=== PATIENT | male | born 1985 | race Caucasian/White ===

== ENCOUNTER 2021-03-17 01:36 | Emergency (ER) | payer BC, SELFPAY ==
[2021-03-17 01:46] VITALS: BP 181/101; PULSE 100; RESP 18; TEMP 36.2; O2SAT 100; BMI 35.2
[2021-03-17 02:02] LABS: IDNOW Serial# 9DD0AD1C
[2021-03-17 02:03] LABS: COVID-19 Test Positive (Negative)
--- NOTE | 2021-03-17 03:19 | ED_ITS ---
HPI - General Adult General Chief complaint: General Medical Stated complaint: Congested/SOB Time Seen by Provider: 03/17/21 02:58 Source: patient Mode of arrival: ambulatory Limitations: no limitations History of Present Illness HPI narrative: 36-year-old male who presents emergency department for evaluation of viral-like illness. The patient states that he got sick on 03/14/2021. His symptoms include fever, chills, sore throat, shortness of breath, nonproductive cough. He states the cough is worse when he is lying down. He states that he has a persistent cough and he is having difficulty sleeping. He also has chest pain which is worse with coughing and breathing. He feels short of breath but denies dyspnea on exertion. He has had fever as high as 101? F. The patient received the 2 shot Moderna vaccine with the 2nd shot given June 2020. Patient has been taking Tessalon Perles with no relief his cough. Related Data Allergies Allergy/AdvReac Type Severity Reaction Status Date / Time lisinopril AdvReac Mild Cough Verified 03/17/21 01:45 Review of Systems Review of Systems: Yes all other systems are reviewed and are negative [facility] Past Medical History [facility] Narrative: Past medical history: Hypertension. Social history: He denies tobacco use. He occasionally drinks alcohol. He denies drug use. Medical History (Updated 03/17/21 @ 03:26 by Tomas Austin MD) Hypertension Social History Social History Advance Directives: No Physical Exam Vital Signs: Vital Signs: Last Vital Signs Temp 97.1 F 03/17/21 01:46 Pulse 100 03/17/21 01:46 Resp 18 03/17/21 01:46 BP 181/101 H 03/17/21 01:46 Pulse Ox 100 03/17/21 01:46 BMI result Body Mass Index 35.2 Const: General: cooperative and no acute distress Or ientation/consciousness: oriented to person and oriented to place Limitations: no limitations HENMT: Head: Yes normal to inspection, Yes normocephalic and Yes atraumatic Ears: external ears normal General nose exam: Normal external nose present Face and sinus: Yes normal facial exam Mouth: Normal oral and palatal mucosa present Throat: Yes posterior oropharynx normal Eyes: General: appearance normal, both eyes and all related structures Pupils: Equal, round and reactive pupils present Neck: Neck: Yes normal visual inspection, Yes no lymphadenopathy, Yes trachea midline and Yes supple Chest: Chest palpation & inspection: normal inspection of the chest and normal palpation of entire chest wall Resp: Effort & Inspection: normal respiratory effort and able to speak in complete sentences Auscultation: clear to auscultation bilaterally Cardio: Rate: regular rate Rhythm: regular rhythm Heart sounds: S1 normal heart sound present, S2 normal heart sound present and no murmurs GI: Inspection: Yes normal to inspection Palpation (GI): Soft to palpation, nontender and no guarding Auscultation: normal bowel sounds : General: Yes no CVA tenderness Back/Spine/Pelvis: Back: no CVA tenderness Skin: General skin exam: no rashes or lesions noted Neuro: General: oriented to person and oriented to place Cranial nerves: Yes CN's II-XII intact bilaterally and Yes Equal, round and reactive pupils present Cognition (Neuro): normal cognition Motor exam (neuro): 5/5 motor strength present throughout Extrem: General: Yes normal to inspection Psych: Appearance: grossly normal Speech and movement: Normal speech and movement present Affect: normal affect Attitude: cooperative Thought process: Normal thought process present Thought content: Normal thought content present Course Course Course Narrative: 36-year-old male who presents emergency department for evaluation of viral-like illness that started 2 days prior to evaluation with symptoms including fever, chills, sore throat, shortness of breath, cough, myalgias. Patient was vaccinated with the 2 shot Moderna COVID-19 vaccine with his 2nd shot being given June 2020. Vital signs revealed an elevated blood pressure of 181/101, the patient does have essential hypertension. His O2 saturation was 1 her% on room air. Physical exam was unremarkable. COVID-19 test was positive. The patient has to significant risk factors for serious COVID-19 illness, these include hypertension and obesity. The patient will be referred to the [facility] COVID-19 monoclonal infusion clinic. Tylenol and ibuprofen for his pain. He was given printed and verbal discharge instructions Medical Decision Making Lab Data Labs: Lab Results 03/17/21 Range/Units 01:51 COVID-19 (ASHLEE) Positive A (Negative) COVID-19 Clin Com See Note Discharge Plan Discharge Clinical Impression: COVID-19 virus infection Patient Disposition: Home, Self-Care Instructions: COVID-19 (Coronavirus Disease 2019) (ED) Additional Instructions: Your COVID-19 test was positive. Your O2 saturation was 100% on room air which is very reassuring. We do not hospitalize people with COVID-19 infections unless the developed pneumonia and there O2 saturation drops below 90%. Take ibuprofen 200 mg pills, 3 pills every 6 hours as needed for pain. Take Tylenol (acetaminophen) 500 mg pills, 2 pills every 4 to 6 hours as needed for pain. Hopefully the COVID-19 vaccinations that you received will help you fight off the virus faster and help you recover sooner. You have 2 risk factors for serious illness with COVID-19, these include high blood pressure and being overweight. Therefore I am referring you to the [facility] COVID-19 monoclonal infusion clinic. I emailed the referral form to them. Please call the number on the bottom of the form today to make sure they got this information in to facilitate getting the treatment within the next for 2-4 days. Follow-up with your doctor in 2 days. Please return to the emergency department if your symptoms get worse or if you develop any symptoms that are concerning to you.
== END 2021-03-17 03:34 | disposition home or self-care (01) ==
PROVIDERS: Emergency Provider Emergency Medicine Emergency Medical Services
DX: U07.1 COVID-19 (principal)
CPT/HCPCS: 36415; 87635; 99283

== ENCOUNTER 2024-12-08 00:20 | Emergency (ER) | payer BC, SELFPAY ==
--- OUTSIDE RECORDS SUMMARY | 2023-12-20 14:24 | XMS_ITS | Encounter Summary ---
Author Organization [facility] Address [address] [place] [address] Care Team Providers Care Wrapper Off Name Role Phone Unavailable Primary Care Provider Unavailabl e Encounter Details Date Type Department Care Team (Latest Contact Info) Description 12/20/2023 2:24 PM EDT Hospital Encounter TH HISTORIC ENCOUNTERS EASTERN CONVERSION ONLY Unilateral primary osteoarthritis, left knee Social History Tobacco Use Types Packs/Day Years Used Date Smoking Tobacco: Never Alcohol Use Standard Drinks/Week Comments Not Asked 0 (1 standard drink = 0.6 oz pur e alcohol) Sex and Gender Information Value Date Recorded Sex Assigned at Not on file Legal Sex Male 8:27 PM EST Gender Identity Not on file Sexual Orientation Not on file documented as of this encounter Plan of Treatment Not on file documented as of this encounter Procedures Procedure Name Priority Date/Time Associated Diagnosis Comments CT KNEE LEFT ERROL PROTOCOL WITHOUT IV CONTRAST Routine 12/20/2023 2:57 PM EDT Unilateral primary osteoarthritis, left knee documented in this encounter Results * CT KNEE LEFT ERROL PROTOCOL WITHOUT IV CONTRAST (12/20/2023 2:57 PM EDT) Anatomical Region Laterality Modality Computed Tomogra phy 12/05/2023 2:16 PM EDT Narrative 12/20/2023 2:[address] left knee without contrast--Errol protocol INDICATION: Unilateral primary osteoarthritis left knee. TECHNIQUE: Thin axial slices were acquired through the knee joint. Additional selective axial slices through the hip and ankle joints for the purposes of preoperative planning. Contrast: None. Comparison: None. FINDINGS: Knee: Severe tricompartment osteoarthritis. Small joint effusion. Mild thickening of the patellar tendon. Hip: Synovial herniation pit in the femoral neck. The surrounding soft tissues are unremarkable. Ankle: Normal-appearing joint spaces. The soft tissues are unremarkable. CONCLUSION: Severe left knee osteoarthritis. Mild chronic patellar tendinitis. Report reviewed and signed by : Dr. Vito Banegas MD on 12/20/2023 2:59 PM. Workstation Name - [id number] Procedure Note Vito Banegas MD - 01/13/2024 CT left knee without contrast--Errol protocol INDICATION: Unilateral primary osteoarthritis left knee. TECHNIQUE: Thin axial slices were acquired through the knee joint.Additional selective axial slices through the hip and ankle joints for thepurposes of preoperative planning. Contrast: None. Comparison: None. FINDINGS: Knee: Severe tricompartment osteoarthritis. Small joint effusion. Mildthickening of the patellar tendon. Hip: Synovial herniation pit in the femoral neck. The surrounding softtissues are unremarkable. Ankle: Normal-appearing joint spaces. The soft tissues areunremarkable. CONCLUSION: Severe left knee osteoarthritis. Mild chronic patellar tendinitis. Report reviewed and signed by : Dr. Vito Banegas MD on 12/20/2023 2:59PM. Workstation Name - [id number] us Joaquin Gill MD IMG CT PROCEDURES Final Resu lt documented in this encounter Visit Diagnoses Diagnosis Unilateral primary osteoarthritis, left knee documented in this encounter
--- OUTSIDE RECORDS SUMMARY | 2024-07-29 04:15 | XMS_ITS ---
Author Organization [facility] [address] Address [address] [place] [address] Care Team Providers Care Lead Laying And Gluing Machine Operator Name Role Phone Dr Melo Primary Care Provider CHARLOTTE Tolbert [facility] [phone] Encounters Encounter Location Date Provider Diagnosis [facility] [address] [place] [address] 07/29/2024 CHARLOTTE SHERMAN Plan Of Treatment Next Appt Details Provider Name:CHARLOTTE Foley, 12/09/2024 03:30:00 PM, [address], [address], [place], [address], Progress Notes * ELSA DlDOB: [birth year] (39 yo M)Acc No.[id number]:07/29/2024 Patient: Dl KRAFT Provider: Laci SHERMAN PA-C :1985 A ge:39 Y S ex:Male Date:07/29/2024 Address:[address] [place], [place] [id number] Pcp:Dr Alejo Subjective: * Chief Complaints: * * Medical History: Objective: * Vitals: Assessment: Plan: * Treatment: * Images: Billing Information: * Visit Code: * Procedure Codes: * Electronic signature of SHEELA SHERMAN PA-C on 12/08/2024 at 01:34 AM EDT Sign off status: Pending * Provider: Laci SHERMAN PA-C Date: 0 07/29/2024 Generated for Printi ng/Facamilag/eTransmitting on: 0 12/08/2024 01:34 AM EDT
--- OUTSIDE RECORDS SUMMARY | 2024-11-09 04:30 | XMS_ITS ---
Author Organization [facility] [address] Address [address] [place] [address] Care Team Providers Care Technical Architect Name Role Phone Dr Melo Primary Care Provider CHARLOTTE Tolbert [facility] [phone] Encounters Encounter Location Date Provider Diagnosis [facility] [address] [place] [address] 11/09/2024 CHARLOTTE SHERMAN Plan Of Treatment Next Appt Details Provider Name:CHARLOTTE Foley, 12/09/2024 03:30:00 PM, [address] [facility], [address], [place], [address], Progress Notes * ORLANDOWILFRIDOSELVINDlDOB: 4 (39 yo M)Acc No.[id number]:11/09/2024 Progress Notes Patient: Dl KRAFT Provider: Laci SHERMAN PA-C :1985 A ge:39 Y S ex:Male Date:11/09/2024 Address:[address] [place], [place] [id number] Pcp:Dr Alejo Subjective: * Chief Complaints: * * Medical History: Objective: * Vitals: Assessment: Plan: * Treatment: * Images: Billing Information: * Visit Code: * Procedure Codes: * Electronic signature of SHEELA SHERMAN PA-C on 12/08/2024 at 01:34 AM EDT Sign off status: Pending * Provider: Laci SHERMAN PA-C Date: 11/09/2024 Generated for Qi rush/Chava/eTransmitting on: 12/08/2024 01:34 AM EDT
--- NOTE | ~2024-12-08 | XR_ITS ---
CLINICAL HISTORY: R. hand forearm pain s p fall. 3 view right hand Comparison: None provided Findings: No fractures or dislocations. Mild degenerative changes of the 1st carpometacarpal joint. No erosions. No radiopaque foreign body. IMPRESSION: 1. No acute fracture This document has been electronically signed by: Sherin Quintanilla MD on 12/08/2024 01:09:23
--- NOTE | ~2024-12-08 | XR_ITS ---
CLINICAL HISTORY: R. hand forearm pain s p fall. 2 view right forearm Comparison: None provided Findings: No fractures or dislocations. No joint effusion. No significant arthritic change. No radiopaque foreign body. IMPRESSION: 1. No acute fracture. This document has been electronically signed by: Sherin Quintanilla MD on 12/08/2024 01:08:46
[2024-12-08 00:25] VITALS: BP 165/104; PULSE 89; RESP 16; TEMP 36.6; O2SAT 98; BMI 32.3
--- NOTE | 2024-12-08 01:25 | ED_ITS ---
HPI - Extremity Problem General Chief complaint: Extremity Injury, Upper Stated complaint: Right hand pain, fracture from fall? Time Seen by Provider: 12/08/24 01:14 Source: patient Mode of arrival: ambulatory Limitations: no limitations History of Present Illness ED Provider: Dr. Minerva Luna HPI Narrative: Patient comes to the emergency room complaining of right-sided hand pain. Patie nt states that he was taking his dog out for a walk, and around midnight he fell and caught himself with his right hand. Patient states that his hand look deformed and he was able to reduce the information by himself. Patient denies hitting his head or losing consciousness, denies any other injuries. Related Data Previous Rx's ?Medication ?Instructions ?Recorded ketorolac 10 mg tablet 10 mg PO TID PRN pain #10 ta bs 12/08/24 Allergies Allergy/AdvReac Type Severity Reaction Status Date / Time lisinopril AdvReac Mild Cough Verified 12/08/24 00:32 Review of Systems Review of Systems: Constitutional : No Weight loss, No Fever, No Chills, No Night Sweats, No Fatigue, No Malaise ENT/Mouth : No Hearing loss, No Ear Pain, No Nasal Congestion, No Sinus Pain, No Hoarseness, No sore throat, No Rhinorrhea, No Swallowing Difficulty Eyes: No Eye Pain, No Swelling, No Redness, No Foreign Body, No Discharge, No Vision Changes Cardiovascular : No Chest Pain, No SOB, No Dyspnea on Exertion, No Orthopnea, No Edema, No Palpitations Respiratory : No Cough, No Sputum, No Wheezing, No Smoke Exposure, No Dyspnea Gastrointestinal : No Nausea, No Vomiting, No Diarrhea, No Constipation, No abdominal Pain, No Hematochezia, No Melena Genitourinary : no irregular bleeding, No Dysuria, No Urinary Frequency, No Hematuria, No Urinary Incontinence, No Urgency, No Flank Pain, No Urinary Flow Changes, No Hesitancy Musculoskeletal : Complaining of pain in the hand in the ulnar aspect, No Myalgias, No Joint Swelling Skin : No Skin Lesions, No rash Neuro : No Weakness, No Numbness, No Paresthesias, No Loss of Consciousness, No Dizziness, No Headache Psych : No Anxiety/Panic, No Depression, No SI/HI/AH/VH, No Social Issues, Heme/Lymph: No Bruising, No Bleeding,No Lymphadenopathy Endocrine : No Polyuria, No Polydipsia, No Temperature Intolerance [facility] Past Medical History Medical History (Updated 12/08/24 @ 01:33 by Minerva Luna MD) Hypertension Physical Exam Exam: Exam: Appearance: Alert. Oriented X3. No acute distress. Eyes: Pupils equal, round and reactive to light. ENT: Pharynx normal. Neck: Normal inspection. Neck supple. No lymph nodes noted. No crepitus CVS: Normal heart rate and rhythm. Pulses normal. Normal S1 and S2 Respiratory: No respiratory distress. Breath sounds normal. No Wheezing. No rales Abdomen: Soft and nontender. No rigidity. No distention. Skin: Skin warm and dry. Normal skin color. Normal skin turgor. Extremities: No lower extremity edema. No Lacerations. No Rash the right hand along the ulnar aspect looks a bit swollen, there is a small ecchymosis in the dorsum of the right hand, other than swelling no other significant obvious abnormality. Patient able to flex and extend all fingers and the wrist, able to oppose the thumb. No pain to palpation over the snuffbox. Neuro: Oriented X 3. No motor deficit. No sensory deficit. Moving all extremities. No slurred speech. CN 2 through 12 grossly intact Psych: calm, cooperative, normal affect Vital Signs: Vital Signs: Last Vital Signs Temp 98 F 12/08/24 00:25 Pulse 89 12/08/24 00:25 Resp 16 12/08/24 00:25 BP 165/104 H 12/08/24 00:25 Pulse Ox 98 12/08/24 00:25 O2 Del Method Room Air 12/08/24 00:25 BMI result Body Mass Index 32.3 Medications Administered Discontinued Medications Generic Name Dose Route Start Last Admin Trade Name Freq PRN Reason Stop Dose Admin Acetaminophen 975 mg 12/08/24 00:33 12/08/24 00:35 Acetaminophen 325 Mg Tablet PO 12/08/24 00:34 975 mg ONCE ONE Administration Medical Decision Making Medical Decision Making [facility] Narrative: Patient was given IM ketorolac. X-rays of the hand and forearm did not show any acute abnormality. The above was discussed with the patient Independent Interpretation I performed an independent interpretation of an: Plain X-Ray Radiology Impression Discussion of test interpretation with radiology: I have reviewed the radiologist's reading. Radiologist Impression: No fractures or dislocations. Mild degenerative changes of the 1st carpometacarpal joint. No erosions. No radiopaque foreign body. IMPRESSION: 1. No acute fracture Findings: No fractures or dislocations. No joint effusion. No significant arthritic change. No radiopaque foreign body. IMPRESSION: 1. No acute fracture. Discharge Plan Discharge Clinical Impression: Hand sprain, Contusion Patient Disposition: Home, Self-Care Instructions: Sprain (ED) Additional Instructions: Please follow-up with your primary care physician tomorrow. If you have any worsening or new symptoms, please return to the emergency room or call 911 Prescriptions: New ketorolac 10 mg tablet 10 mg PO TID PRN (Reason: pain) Qty: 10 0RF Rx Instructions: Do not use this medication with NSAIDs such as ibuprofen, only Tylenol if needed Stand Alone Forms: Work/School Release Print Language: Icelandic
--- OUTSIDE RECORDS SUMMARY | 2024-12-08 01:34 | XMS_ITS | Encounter Summary ---
Author Organization [facility] Address [address] [place] [address] Phone Care Team Providers Care Claim Analyst Name Role Phone Marco A Erickson MD Primary Care Provider [phone] Marco A Erickson MD Unavailable Encounter Details Date Type Department Care Team (Late st Contact Info) Description 12/29/2019 Procedure Pass [facility], [address] [address] Social History Tobacco Use Types Packs/Day Years Used Date Smoking Tobacco: Never Smokeless Tobacco: Never Alcohol Use Standard Drinks/Week Comments Yes 6 (1 standard drink = 0.6 oz pur e alcohol) beer 6-12 Sex and Gender Information Value Date Recorded Sex Assigned at Male 04/18/2022 9:45 AM EST Legal Sex Male 8:40 AM EDT Gender Identity Male 04/18/2022 9:45 AM EST Sexual Orientation Straight 04/18/2022 9: 45 AM EST documented as of this encounter Last Filed Vital Signs Vital Sign Reading Time Taken Comments Blood Pressure - - Pulse - - Temperature - - Respiratory Rate - - Oxygen Saturation - - Inhaled Oxygen Concentration - - Weight 108.9 kg (240 lb) 12/30/2019 12:40 PM EDT Height 177.8 cm (5' 10 ) 12/30/2019 12:40 PM EDT Body Mass Index 34.44 12/30/2019 12:40 PM EDT documented in this encounter Plan of Treatment Not on file documented as of this encounter Visit Diagnoses Not on filedocumented in this encounter Care Teams Claim Analyst Relationship Specialty Start Date End Date Marco A Erickson MD [address] [place] [address] [email or web address] PCP - General Internal Medicine 01/14/19 Marco A Erickson MD [address] [place] [email or web address] Insurance Assigned Provider 06/22/23 07/25/24 documented as of this encounter Additional Source Comments The information contained in this document represents components of the legal health record. It is not the complete legal health record.[facility]
--- OUTSIDE RECORDS SUMMARY | 2024-12-08 01:34 | XMS_ITS ---
Author Name [facility] Organization Unknown History of Medication Use Medication Directions Dispensed Refills Start Date End Date [facility] Enteric Coated Aspirin 81 mg tablet,delayed release Take 1 tablet twice a day by oral route for 28 days. 01/02/2024 4 active ondansetron 8 mg disintegrating tablet Take 1 tablet dissolved under the tongue every 8 hours as needed for nausea. 01/02/2024 4 active cefadroxil 500 mg capsule Take 1 capsule twice a day by oral route for 7 days. 01/02/2024 4 active methocarbamol 750 mg tablet Take 1 tablet every 6 hours by oral route as needed. 01/02/2024 4 active oxycodone 5 mg tablet Take 1-2 tablets every 4 hours as needed for pain. 01/02/2024 4 active Senokot-S 8.6 mg-50 mg tablet Take 1 tablet twice a day by oral route. 01/02/2024 active lidocaine (PF) 100 mg/5 mL (2 %) injection syringe Take 4 mL by injection route. 07/01/2023 4 completed triamcinolone acetonide 40 mg/mL suspension for injection Take 40 mg by injection route. 07/01/2023 4 active triamcinolone acetonide 40 mg/mL suspension for injection Take 40 mg by injection route. 07/01/2023 4 completed meloxicam 15 mg tablet Take one tablet daily for 15 days. 09/10/2022 4 active Wegovy 0.25 mg/0.5 mL subcutaneous pen injector ADMINISTER 0.25 MG UNDER THE SKIN WEEKLY 5 completed acetaminophen 500 mg tablet TAKE 2 TABLETS BY MOUTH EVERY 8 HOURS 5 completed aspirin 325 mg tablet TAKE 1 TABLET BY MOUTH TWICE DAILY FOR 14 DAYS 4 active aspirin 325 mg tablet TAKE 1 TABLET BY MOUTH TWICE DAILY FOR 14 DAYS 4 completed aspirin 81 mg tablet,delayed release TAKE 1 TABLET BY MOUTH TWICE DAILY 4 completed ondansetron 8 mg disintegrating tablet TAKE 1 TABLET BY MOUTH DISSOLVED UNDER THE TONGUE EVERY 8 NEEDED FOR NAUSEA 4 completed pantoprazole 40 mg tablet,delayed release TAKE 1 TABLET BY MOUTH EVERY DAY NEEDED 4 completed Stimulant Laxative Plus 8.6 mg-50 mg tablet TAKE 1 TABLET BY MOUTH TWICE DAILY 4 completed cefadroxil 500 mg capsule TAKE 1 CAPSULE BY MOUTH TWICE DAILY FOR 7 DAYS 4 completed methocarbamol 750 mg tablet TAKE 1 TABLET BY MOUTH EVERY 6 HOURS NEEDED 4 completed oxycodone 5 mg tablet TAKE 1 TABLET BY MOUTH EVERY 6 HOURS NEEDED 4 completed tranexamic acid 650 mg tablet TAKE 3 TABLETS BY MOUTH IN THE MORNING FOR 3 DAYS. START ON THE FIRST DAY AFTER YOUR SURGERY 4 completed colchicine 0.6 mg tablet TAKE 2 TABLETS BY MOUTH ONCE THEN 1 TABLET 1 HOUR LATER. REPEAT DAILY NEEDED 4 completed losartan 50 mg tablet 4 completed ofloxacin 0.3 % eye drops 4 completed ofloxacin 0.3 % eye drops 4 completed amoxicillin 500 mg capsule TAKE 1 CAPSULE BY MOUTH TWICE DAILY 4 completed amoxicillin 500 mg capsule TAKE 1 CAPSULE BY MOUTH TWICE DAILY 4 completed amoxicillin 500 mg tablet 4 completed azithromycin 250 mg tablet 4 active azithromycin 250 mg tablet 4 completed clindamycin HCl 300 mg capsule TAKE 1 CAPSULE BY MOUTH THREE TIMES DAILY UNTIL ALL TAKEN 4 completed losartan 100 mg tablet 4 completed losartan 100 mg tablet 4 completed meloxicam 15 mg tablet active lidocaine (PF) 100 mg/5 mL (2 %) injection syringe active triamcinolone acetonide 40 mg/mL suspension for injection active meloxicam 15 mg tablet TAKE 1 TABLET BY MOUTH EVERY DAY FOR 15 DAYS active valsartan 160 mg-hydrochlorothiazi de 25 mg tablet TAKE 1 TABLET BY MOUTH DAILY active Wegovy 0.25 mg/0.5 mL subcutaneous pen injector ADMINISTER 0.25 MG UNDER THE SKIN WEEKLY active Wegovy 0.5 mg/0.5 mL subcutaneous pen injector ADMINISTER 0.5 MG UNDER THE SKIN WEEKLY active Wegovy 0.5 mg/0.5 mL subcutaneous pen injector ADMINISTER 0.5 MG UNDER THE SKIN WEEKLY active Wegovy 1 mg/0.5 mL subcutaneous pen injector ADMINISTER 1 MG UNDER THE SKIN WEEKLY active Problems Problem Status Onset Date Problem Type Date of Resoluti on Source History of total knee arthroplasty active 2024-01-21 ProblemAct [facility] Bilateral arthritis of knees active 2022-09-10 ProblemAct [facility] Arthritis of knee active 2023-12-05 ProblemAct [facility] Osteoarthritis of left knee joint active 2023-07-01 ProblemAct [facility] Osteoarthritis of knee active 2022-10-30 ProblemAct [facility] Pain of left knee region active 2023-08-19 ProblemAct [facility] Encounters Encounter Type Encounter Reason Primary Diagnosis Location Date Ambulatory [facility] 09/06/2024 Ambulatory [facility] 08/12/2024 Ambulatory [facility] 08/02/2024 Ambulatory [facility] 07/31/2024 Ambulatory [facility] 07/28/2024 Ambulatory [facility] 07/03/2024 Ambulatory [facility] 06/29/2024 Ambulatory [facility] 06/12/2024 Ambulatory [facility] 06/10/2024 Ambulatory [facility] 05/04/2024 Ambulatory [facility] 05/01/2024 Ambulatory [facility] 05/01/2024 Ambulatory [facility] 05/01/2024 Ambulatory [facility] 01/23/2024 Ambulatory [facility] 01/18/2024 Ambulatory [facility] 01/15/2024 Ambulatory ROUTINE Unilateral prima ry osteoarthritis, left knee [facility] 01/07/2024 Ambulatory [facility] 01/02/2024 Ambulatory [facility] 12/18/2023 Ambulatory [facility] 12/05/2023 Ambulatory [facility] 11/29/2023 Ambulatory [facility] 11/28/2023 Ambulatory [facility] 11[facility]25/2023 Ambulatory [facility] 11[facility]22/2023 Ambulatory [facility] 11/11/2023 Ambulatory [facility] 10/18/2023 Ambulatory [facility] 10[facility]14/2023 Ambulatory [facility] 09/13/2023 Ambulatory [facility] 08/21/2023 Ambulatory [facility] 08/14/2023 Ambulatory [facility] 08/09/2023 Ambulatory [facility] 08/09/2023 Ambulatory [facility] 07/01/2023 Ambulatory [facility] 05/09/2023 Ambulatory [facility] 01/18/2023 Ambulatory [facility] 12/14/2022 Ambulatory [facility] 11/09/2022 Ambulatory [facility] 10/29/2022 Ambulatory [facility] 10/29/2022 Ambulatory [facility] 10/18/2022 Ambulatory [facility] 10[facility]18/2022 Ambulatory [facility] 10/18/2022 Ambulatory [facility] 10[facility]18/2022 Ambulatory [facility] 10/05/2022 Ambulatory [facility] 09[facility]10/2022 Ambulatory [facility] 09/10/2022 Ambulatory [facility] 09/10/2022 Ambulatory [facility] 09/10/2022 Care Team Organization Name Specialty Phone Email Start Date End Da te [facility] 2023 [facility] 2023
--- OUTSIDE RECORDS SUMMARY | 2024-12-08 01:34 | XMS_ITS | Encounter Summary ---
Author Organization [facility] Address [address] [place] [id number] Phone Care Team Providers Care Heat Curer Name Role Phone Marco A Erickson MD Primary Care Provider [phone] Marco A Erickson MD Unavailable Encounter Details Date Type Department Care Team (Late st Contact Info) Description 12/31/2019 Ancillary Orders [facility],Outside Imaging [address] [place] [address] System, Provider Not In, [facility] [address] [id number] Social History Tobacco Use Types Packs/Day Years [...] AM EST documented as of this encounter Plan of Treatment Not on file documented as of this encounter Results * MRI Lower Extremity Outside (No Interpretation) (04/01/2018 12:00 AM EST) Narrative SYSTEMGENERATED, DOCUMENTATION - 12/31/2019 10:14 AM EDT This study is for PACS storage only and not for interpretation. us Provider Not In System [facility] OUTSIDE IMAGING W /OUT INTERPRETATION Final Result documented in this encounter Visit Diagnoses Not on filedocumented in this encounter Care Teams Heat Curer Relationship Specialty Start Date End Date Marco A Erickson MD [address] [place] [address] [email or web address] PCP - General Internal Medicine 01/14/19 Marco A Erickson MD [address] [place] [address] [email or web address] Insurance Assigned Provider 06/22/23 07/25/24 documented as of this encounter Additional Source Comments The information contained in this document represents components of the legal health record. It is not the complete legal health record.[facility]
--- OUTSIDE RECORDS SUMMARY | 2024-12-08 01:34 | XMS_ITS | Clinical Summary ---
Author Organization [facility] Address [address] [place] [address] Care Team Providers Care Saddle And Harness Maker Name Role Phone Unknown, Primary Care Provider Unavailabl e Social History Tobacco Use Types Packs/Day Years Used Date Smoking Tobacco: Never Assessed Sex and Gender Information Value Date Recorded Sex Assigned at Not on file Gender Identity Not on file Sexual Orientation Not on file Job Start Date Occupation Industry Not on file Not on file Not on file Plan of Treatment Health Maintenance Due Date Last Done Comments Hepatitis B Vaccines (1 of 3 - 3-dose series) 1984 Depression Screening 1996 Preventative Health Evaluation 2002 COVID-19 Vaccine (2 - 2024-2 6 season) 2024 06/02/2020 Influenza Vaccine (#1) 2024 , 04/18/2022, 12/22/2018 DTap / Tdap / Td (2 - Td or Tdap) 05/01/2026 05/01/2016 Hepatitis C Screening Completed 04/18/2022 Pneumococcal Vaccine Aged Out No long er eligible based on patient's age to complete this topic RSV Ped < 20 months Aged Out No longe r eligible based on patient's age to complete this topic Care Teams Saddle And Harness Maker Relationship Specialty Start Date End Date Unknown, PCP - General 10/24/22
--- OUTSIDE RECORDS SUMMARY | 2024-12-08 01:35 | XMS_ITS | Patient Health Record ---
Author Organization [facility] [address] Address [address] [place] [address] Care Team Providers Care Research Scientist Name Role Phone Dr Melo Primary Care Provider CHARLOTTE Tolbert Unavailable [phone] JUDY DELANEY Unavailable [phone] Allergies Allergen (clinical drug ingredient) Drug/Non Drug Allergy documented on EMR Reaction Allergy Type Onset Date Status lisinopril Lisinopril Unknown Drug Allergy Activ e Results Component Value Reference Range Notes LIPID PANEL, STANDARD Reviewed date:04/15/2024 08:39:55 PM Interpretation: Performing Lab:NL2, [facility] [address] Dariana Elizondo Notes/Report: FASTING: YES FASTING:YES CHOLESTEROL, TOTAL 209 <200 mg/dL HDL CHOLESTEROL 61 > OR = 40 mg/dL TRIGLYCERIDES 141 <150 mg/dL LDL-CHOLESTEROL 123 Reference range: <100 Desirable range <100 mg/dL for primary prevention; <70 mg/dL for patients with CHD or diabetic patients with > or = 2 CHD risk factors. LDL-C is now calculated using the Rachid-Shasta calculation, which is a validated novel method providing better accuracy than the Friedewald equation in the estimation of LDL-C. Rachid MEJIA et al. ESTELA. 2013;310(19): 1948-1127 (http://education.Focus.com/faq/BZA045) CHOL/HDLC RATIO 3.4 <5.0 (calc) NON HDL CHOLESTEROL 148 <130 mg/dL (calc) For patients with diabetes plus 1 major ASCVD risk factor, treating to a non-HDL-C goal of <100 mg/dL (LDL-C of <70 mg/dL) is considered a therapeutic option. CBC (INCLUDES DIFF/PLT) Reviewed date:04/15/2024 08:39:46 PM Interpretation: Performing Lab:2, [facility] Shwetamilena Mccullough Caro Notes/Report: FASTING:YES FASTING: YES WHITE BLOOD CELL COUNT 7.3 3.8-10.8 Thousand/ uL RED BLOOD CELL COUNT 4.98 4.20-5.80 Million/uL HEMOGLOBIN 14.6 13.2-17.1 g/dL HEMATOCRIT 44.0 38.5-50.0 % MCV 88.4 80.0-100.0 fL MCH 29.3 27.0-33.0 pg MCHC 33.2 32.0-36.0 g/dL For adults, a slight decrease in the calculated MCHC value (in the range of 30 to 32 g/dL) is most likely not clinically significant; however, it should be interpreted with caution in correlation with other red cell parameters and the patient's clinical condition. RDW 12.6 11.0-15.0 % PLATELET COUNT 192 140-400 Thousand/uL MPV 11.0 7.5-12.5 fL ABSOLUTE NEUTROPHILS 4482 3311-8896 cells/uL ABSOLUTE LYMPHOCYTES 0414 540-3591 cells/uL ABSOLUTE MONOCYTES 657 200-950 cells/uL ABSOLUTE EOSINOPHILS 161 15-500 cells/uL ABSOLUTE BASOPHILS 29 0-200 cells/uL NEUTROPHILS 61.4 LYMPHOCYTES 27.0 MONOCYTES 9.0 EOSINOPHILS 2.2 BASOPHILS 0.4 HEMOGLOBIN A1c Reviewed date:04/15/2024 08:39:17 PM Interpretation: Performing Lab:JANINE, [facility] Dariana Elizondo Notes/Report: FASTING:YES FASTING: YES HEMOGLOBIN A1c 5.5 <5.7 % of total Hgb For the purpose of screening for the presence of diabetes: <5.7% Consistent with the absence of diabetes 5.7-6.4% Consistent with increased risk for diabetes (prediabetes) > or =6.5% Consistent with diabetes This assay result is consistent with a decreased risk of diabetes. Currently, no consensus exists regarding use of hemoglobin A1c for diagnosis of diabetes in children. According to [place] Diabetes [employer] (ADA) guidelines, hemoglobin A1c <7.0% represents optimal control in non- diabetic patients. Different metrics may apply to specific patient populations. Standards of Medical Care in Diabetes(ADA). TSH W/REFLEX TO FT4 Reviewed date:04/15/2024 08:39:36 PM Interpretation: Performing Lab:NL2, [facility] Dariana Elizondo Notes/Report: FASTING:YES FASTING: YES TSH W/REFLEX TO FT4 1.86 0.40-4.50 mIU/L VITAMIN D,25-OH,TOTAL,IA Reviewed date:04/16/2024 01:05:54 PM Interpretation: Performing Lab:NL2, [facility] Shweta Sadia Elizondo Notes/Report: FASTING:YES FASTING: YES VITAMIN D,25-OH,TOTAL,IA 23 30-100 ng/mL Vitamin D Status 25-OH Vitamin D: Deficiency: <20 ng/mL Insufficiency: 20 - 29 ng/mL Optimal: > or = 30 ng/mL For 25-OH Vitamin D testing on patients on D2-supplementation and patients for whom quantitation of D2 and D3 fractions is required, the QuestAssureD(TM) 25-OH VIT D, (D2,D3), LC/MS/MS is recommended: order code 94116 (patients >2yrs). See Note 1 Note 1 For additional information, please refer to http://education.Trendr.com/faq/KQL477 (This link is being provided for informational/ educational purposes only.) Reason For Referral No Information Medications Medication SIG (Take, Route, Frequency, Duration) Notes Start Date End Date Status Wegovy 1.7 MG/0.75ML Inject 1.7mg Subcut aneous weekly; Duration: 30 days Active Valsartan-hydroCHLOROthia zide 160-25 MG TAKE 1 TABLET BY MOUTH DAILY Oral; Duration: 30 Days Active Wegovy 2.4 MG/0.75ML Inject 2.4mg Subcut aneous once weekly; Duration: 30 days 10/28/2024 Active Problems Problem Type SNOMED Code ICD Code Onset Dates Problem Status W/U Status Risk Notes Problem Vitamin D deficiency (71218053) Vitamin D deficiency, unspecified (E55.9) Active confirmed Problem Essential hypertension (61885890) Essential hypertension (I10) Active confirmed Problem Obesity (734161592) Obesity (BMI 30-39.9) (E66.9) Active confirmed Problem Obese class I (372087836036600 ) BMI 33.0-33.9,adult (Z68.33) Active confirmed Problem Arthritis of right knee (736665104827616 2) Arthritis of right knee (M17.11) Active confirmed Problem Gout (14157043) Gout involving toe of right foot, unspecified cause, unspecified chronicity (M10.9) Active confirmed Vital Signs Heart Rate 96 /min 10/28/2024 Oximetry 96 % 10/28/2024 Blood pressure diastolic 96 mm Hg 10/28/2024 Height 69 in 10/28/2024 Blood pressure systolic 142 mm Hg 10/28/2024 Weight 226.3 lbs 10/28/2024 BMI 33.42 kg/m2 10/28/2024 Encounters Encounter Location Date Provider Diagnosis [facility] [address] [address] 07/10/2024 JUDY DELANEY [facility] [address] [address] 03/17/2024 [place] Obesity (BMI 30-39.9 ) E66.9 ; BMI 38.0-38.9,adult Z68.38 ; Essential hypertension I10 and Nutritional counseling Z71.3 [facility] [address] [address] 04/14/[address] Obesity (BMI 30-39.9 ) E66.9 ; BMI 37.0-37.9, adult Z68.37 ; Essential hypertension I10 and Nutritional counseling Z71.3 [facility] [address] [address] 05/18/[address] Obesity (BMI 30-39.9 ) E66.9 ; BMI 37.0-37.9, adult Z68.37 ; Essential hypertension I10 and Nutritional counseling Z71.3 [facility] [address] [address] 06/29/[address] Obesity (BMI 30-39.9 ) E66.9 ; BMI 35.0-35.9,adult Z68.35 ; Essential hypertension I10 and Nutritional counseling Z71.3 [facility] [address] [facility] [address] [address] 08/05/[address] Obesity (BMI 30-39.9 ) E66.9 ; BMI 35.0-35.9,adult Z68.35 ; Essential hypertension I10 and Nutritional counseling Z71.3 [facility] [address] [facility] [address] [address] 09/16/2024 [place] Obesity (BMI 30-39.9 ) E66.9 ; BMI 34.0-34.9,adult Z68.34 ; Essential hypertension I10 and Nutritional counseling Z71.3 [facility] [address] [address] 10/28/2024 [place] Obesity (BMI 30-39.9 ) E66.9 ; BMI 33.0-33.9,adult Z68.33 ; Essential hypertension I10 and Nutritional counseling Z71.3 [facility] [address] [facility] [address] [address] 03/17/[address] [facility] [address] 04/16/2024 [place] [facility] [address] [address] 07/01/2024 [place] Obesity (BMI 30-39.9 ) E66.9 [facility] [address] [address] 07/08/2024 [place] [facility] [address] [place] [address] 10/26/2024 [place] Essential hypertensi on I10 [facility] [address] 12/07/2024 [place] [facility] [address] [address] 03/20/2024 [place] [facility] [address] [address] 03/20/[address] [facility] [address] [address] 03/20/[address] [facility] [address] [address] 07/01/[address] Obesity (BMI 30-39.9 ) E66.9 [facility] [address] [address] 07/01/[address] [facility] [address] [address] 07/02/[address] [facility] [address] [address] 09/07/[address] Obesity (BMI 30-39.9 ) E66.9 [facility] [address] [address] 09/07/[address] [facility] [address] [address] 10/07/[address] Obesity (BMI 30-39.9 ) E66.9 [facility] [address] [address] 11/10/[address] Obesity (BMI 30-39.9 ) E66.9 Assessments Encounter Date Diagnosis (ICD Code) Assessment Notes Treatment Notes Treatment Clinical Notes Section Notes 03/17/2024 Obesity (BMI 30-39.9) (ICD-10 - E66.9) Dl is a 39-year-old male with a PMH of HTN presented for weight management consultation. Patient was reassured and welcomed to the practice. Discussed [facility] holistic and medical approach to weight loss with emphasis on lifestyle modification. Patient is educated that a healthy lifestyle aids in combating obesity as well as reducing the risk of developing obesity-related medical complications including but not limited to diabetes and cardiovascular disease. Detailed education provided about taking steps to initiate sustainable lifestyle changes including incorporating regular physical activity, making healthy diet choices, and prioritizing mental health. Information provided about literature including The Food Rules by Noah Gunn and Eat Fat Get Lean by Dr Paulino Matthews. Handouts including lifestyle checklist, protein content of food, low calorie snacks, and cholesterol information sheet provided. Diagnostic testing/ SECA scale offered. Discussed the importance of regular SECA scale measurements to ensure healthy weight loss. 03/17/2024: Weight: 259, BMI: 38.2. Reviewed SECA/goals for implementing sustainable lifestyle changes. Patient is encouraged to increase physical activity, goal 8-10k steps/day. Also discussed the importance of strength training with proper safety/body mechanics for maintenance of muscle mass/bone health. Patient encouraged to drink 60-80oz water/day. Reviewed nutrition, recommending food diary x 1 week to ensure adequate caloric/protein intake. Goal of 100g protein/day. Reviewed risks, benefits, and side effects of weight management medications including phentermine, Topamax, Contrave, metformin, and GLP-1 agonist. Patient interested in GLP-1 agonist Wegovy. Denies personal/family history of medullary thyroid cancer/M EN syndrome. Rx for Wegovy 0.25 mg SC weekly sent to pharmacy. Reviewed expectations for insurance coverage/PA process. Patient would like to initiate treatment with compounded semaglutide today. Additionally received MICC injection. After consultation and careful review of medical history, this patient would benefit from Wegovy based off of the following criteria met: Patient is over the age of 18 with a BMI of 38.24. Additional comorbidities include HTN. Patient has trialed other methods of weight loss including improving diet and exercise without success. This medication is prescribed by or in consultation with a board-certified obesity and weight management physician (Dr. Lelo Rubio or Dr. Pete Rubio). #HTN: Patient's BP elevated to 160/84. Taking valsartan/HCTZ 160-25 mg once daily with compliance. Patient is encouraged to monitor home BPs. If systolic pressure consistently >140 or diastolic pressure consistently >90 patient is encouraged to follow-up with primary care provider. All questions answered to the patient's satisfaction. Patient demonstrates understanding of diagnosis and treatments discussed. Follow-up at next scheduled appointment, sooner should any questions/concerns arise. Case discussed with collaborating physician Taniya Rubio who has reviewed the assessment/plan. Chart, medications, labs, and vital signs reviewed. Dictation completed with the use of [employer] voice recognition software, prone to medical misidentifications and grammatical errors. All errors are unintentional. Although the practitioner does try to identify and correct errors, some may be present. Please do not hesitate to contact the practitioner for clarification. Total time was 60 minutes spent with >50% on coordination of care and patient education. 03/17/2024 BMI 38.0-38.9,adult (ICD-10 - Z68.38) Dl is a 39-year-old male with a PMH of HTN presented for weight management consultation. Patient was reassured and welcomed to the practice. Discussed [facility] holistic [facility] medical approach to weight loss with emphasis on lifestyle modification. Patient is educated that a healthy lifestyle aids in combating obesity as well as reducing the risk of developing obesity-related medical complications including but not limited to diabetes and cardiovascular disease. Detailed education provided about taking steps to initiate sustainable lifestyle changes including incorporating regular physical activity, making healthy diet choices, and prioritizing mental health. Information provided about literature including The Food Rules by Noah Gunn and Eat Fat Get Lean by Dr Paulino Matthews. Handouts including lifestyle checklist, protein content of food, low calorie snacks, and cholesterol information sheet provided. Diagnostic testing/ SECA scale offered. Discussed the importance of regular SECA scale measurements to ensure healthy weight loss. 03/17/2024: Weight: 259, BMI: 38.2. Reviewed SECA/goals for implementing sustainable lifestyle changes. Patient is encouraged to increase physical activity, goal 8-10k steps/day. Also discussed the importance of strength training with proper safety/body mechanics for maintenance of muscle mass/bone health. Patient encouraged to drink 60-80oz water/day. Reviewed nutrition, recommending food diary x 1 week to ensure adequate caloric/protein intake. Goal of 100g protein/day. Reviewed risks, benefits, and side effects of weight management medications including phentermine, Topamax, Contrave, metformin, and GLP-1 agonist. Patient interested in GLP-1 agonist Wegovy. Denies personal/family history of medullary thyroid cancer/M EN syndrome. Rx for Wegovy 0.25 mg SC weekly sent to pharmacy. Reviewed expectations for insurance coverage/PA process. Patient would like to initiate treatment with compounded semaglutide today. Additionally received MICC injection. After consultation and careful review of medical history, this patient would benefit from Wegovy based off of the following criteria met: Patient is over the age of 18 with a BMI of 38.24. Additional comorbidities include HTN. Patient has trialed other methods of weight loss including improving diet and exercise without success. This medication is prescribed by or in consultation with a board-certified obesity and weight management physician (Dr. Lelo Rubio or Dr. Pete Rubio). #HTN: Patient's BP elevated to 160/84. Taking valsartan/HCTZ 160-25 mg once daily with compliance. Patient is encouraged to monitor home BPs. If systolic pressure consistently >140 or diastolic pressure consistently >90 patient is encouraged to follow-up with primary care provider. All questions answered to the patient's satisfaction. Patient demonstrates understanding of diagnosis and treatments discussed. Follow-up at next scheduled appointment, sooner should any questions/concerns arise. Case discussed with collaborating physician Taniya Rubio who has reviewed the assessment/plan. Chart, medications, labs, and vital signs reviewed. Dictation completed with the use of [employer] voice recognition software, prone to medical misidentifications and grammatical errors. All errors are unintentional. Although the practitioner does try to identify and correct errors, some may be present. Please do not hesitate to contact the practitioner for clarification. Total time was 60 minutes spent with >50% on coordination of care and patient education. 10/07/2024 Obesity (BMI 30-39.9) (ICD-10 - E66.9) 10/26/2024 Essential hypertension (ICD-10 - I10) 11/10/2024 Obesity (BMI 30-39.9) (ICD-10 - E66.9) 09/16/2024 Obesity (BMI 30-39.9) (ICD-10 - E66.9) Dl is a 39-year-old male with a PMH of HTN presented for weight management follow-up. Reviewed [facility] holistic and medical approach to weight loss with emphasis on lifestyle modification. 09/16/2024: Weight: 234.3, BMI: 34.6. (-4lbs). SECA reviewed, reveals fat loss with maintenance of muscle mass. Patient encouraged to continue making health-conscious diet choices, hydrating adequately and maintaining active lifestyle. Discussed importance of regular eating habits and prioritization of protein intake. Plan to continue Wegovy 1.7 mg SC weekly and follow-up in 1 month. #HTN: BP in office 150/100, ran out of BP meds. PCP refusing to fill meds until patient can be seen. It appears he was last seen by his PCP about 6 months ago. Will provide 1 month refill until he can get into their office. 08/05/2024: Weight: 238, BMI: 35. 06/29/2024: Weight: 238, BMI: 35. (-18lbs) 05/18/2024: Weight: 256, BMI: 37.8. (-1lb) 04/14/2024: Weight: 257, BMI: 37.9. (-2lbs) 03/17/2024: Weight: 259, BMI: 38.2. All questions answered to the patient's satisfaction. Patient demonstrates understanding of diagnosis and treatments discussed. Follow-up in 4 weeks, sooner should any questions/concerns arise. Case discussed with collaborating physician Taniya Rubio who has reviewed the assessment/plan. Chart, medications, labs, and vital signs reviewed. Dictation completed with the use of [employer] voice recognition software, prone to medical misidentifications and grammatical errors. All errors are unintentional. Although the practitioner does try to identify and correct errors, some may be present. Please do not hesitate to contact the practitioner for clarification. Total time was 30 minutes spent with >50% on coordination of care and patient education. 09/16/2024 BMI 34.0-34.9,adult (ICD-10 - Z68.34) Dl is a 39-year-old male with a PMH of HTN presented for weight management follow-up. Reviewed [facility] holistic and medical approach to weight loss with emphasis on lifestyle modification. 09/16/2024: Weight: 234.3, BMI: 34.6. (-4lbs). SECA reviewed, reveals fat loss with maintenance of muscle mass. Patient encouraged to continue making health-conscious diet choices, hydrating adequately and maintaining active lifestyle. Discussed importance of regular eating habits and prioritization of protein intake. Plan to continue Wegovy 1.7 mg SC weekly and follow-up in 1 month. #HTN: BP in office 150/100, ran out of BP meds. PCP refusing to fill meds until patient can be seen. It appears he was last seen by his PCP about 6 months ago. Will provide 1 month refill until he can get into their office. 08/05/2024: Weight: 238, BMI: 35. 06/29/2024: Weight: 238, BMI: 35. (-18lbs) 05/18/2024: Weight: 256, BMI: 37.8. (-1lb) 04/14/2024: Weight: 257, BMI: 37.9. (-2lbs) 03/17/2024: Weight: 259, BMI: 38.2. All questions answered to the patient's satisfaction. Patient demonstrates understanding of diagnosis and treatments discussed. Follow-up in 4 weeks, sooner should any questions/concerns arise. Case discussed with collaborating physician Taniya Rubio who has reviewed the assessment/plan. Chart, medications, labs, and vital signs reviewed. Dictation completed with the use of [employer] voice recognition software, prone to medical misidentifications and grammatical errors. All errors are unintentional. Although the practitioner does try to identify and correct errors, some may be present. Please do not hesitate to contact the practitioner for clarification. Total time was 30 minutes spent with >50% on coordination of care and patient education. 10/28/2024 Obesity (BMI 30-39.9) (ICD-10 - E66.9) Dl is a 39-year-old male with a PMH of HTN presented for weight management follow-up. Reviewed [facility] holistic and medical approach to weight loss with emphasis on lifestyle modification. 10/28/2024: Weight: 226, BMI: 33.4 (-8lbs). SECA reviewed, reveals 8 pounds of fat loss and improvement in muscle mass. Patient encouraged to continue making health-conscious diet choices and prioritizing protein intake. Discussed importance of adequate hydration and maintaining active lifestyle. Will increase dose of Wegovy to 2.4 mg SC weekly and follow-up in 6 weeks. #HTN: BP in office 142/96. Patient has not yet taken BP meds today. Discussed importance of medication compliance. 09/16/2024: Weight: 234.3, BMI: 34.6. (-4lbs). 08/05/2024: Weight: 238, BMI: 35. 06/29/2024: Weight: 238, BMI: 35. (-18lbs) 05/18/2024: Weight: 256, BMI: 37.8. (-1lb) 04/14/2024: Weight: 257, BMI: 37.9. (-2lbs) 03/17/2024: Weight: 259, BMI: 38.2. All questions answered to the patient's satisfaction. Patient demonstrates understanding of diagnosis and treatments discussed. Follow-up in 4 weeks, sooner should any questions/concerns arise. Case discussed with collaborating physician Taniya Rubio who has reviewed the assessment/plan. Chart, medications, labs, and vital signs reviewed. Dictation completed with the use of [employer] voice recognition software, prone to medical misidentifications and grammatical errors. All errors are unintentional. Although the practitioner does try to identify and correct errors, some may be present. Please do not hesitate to contact the practitioner for clarification. Total time was 30 minutes spent with >50% on coordination of care and patient education. 10/28/2024 BMI 33.0-33.9,adult (ICD-10 - Z68.33) Dl is a 39-year-old male with a PMH of HTN presented for weight management follow-up. Reviewed [facility] holistic and medical approach to weight loss with emphasis on lifestyle modification. 10/28/2024: Weight: 226, BMI: 33.4 (-8lbs). SECA reviewed, reveals 8 pounds of fat loss and improvement in muscle mass. Patient encouraged to continue making health-conscious diet choices and prioritizing protein intake. Discussed importance of adequate hydration and maintaining active lifestyle. Will increase dose of Wegovy to 2.4 mg SC weekly and follow-up in 6 weeks. #HTN: BP in office 142/96. Patient has not yet taken BP meds today. Discussed importance of medication compliance. 09/16/2024: Weight: 234.3, BMI: 34.6. (-4lbs). 08/05/2024: Weight: 238, BMI: 35. 06/29/2024: Weight: 238, BMI: 35. (-18lbs) 05/18/2024: Weight: 256, BMI: 37.8. (-1lb) 04/14/2024: Weight: 257, BMI: 37.9. (-2lbs) 03/17/2024: Weight: 259, BMI: 38.2. All questions answered to the patient's satisfaction. Patient demonstrates understanding of diagnosis and treatments discussed. Follow-up in 4 weeks, sooner should any questions/concerns arise. Case discussed with collaborating physician Taniya Rubio who has reviewed the assessment/plan. Chart, medications, labs, and vital signs reviewed. Dictation completed with the use of [employer] voice recognition software, prone to medical misidentifications and grammatical errors. All errors are unintentional. Although the practitioner does try to identify and correct errors, some may be present. Please do not hesitate to contact the practitioner for clarification. Total time was 30 minutes spent with >50% on coordination of care and patient education. 09/07/2024 Obesity (BMI 30-39.9) (ICD-10 - E66.9) 08/05/2024 Obesity (BMI 30-39.9) (ICD-10 - E66.9) Dl is a 39-year-old male with a PMH of HTN presented for weight management follow-up. Reviewed [facility] holistic and medical approach to weight loss with emphasis on lifestyle modification. 08/05/2024: Weight: 238, BMI: 35. Weight stable. SECA reviewed, reveals improvement in body composition -loss of fat mass and increasing muscle mass. He is encouraged to continue with his increased level of physical activity. Discussed importance of regular eating habits with prioritization of protein intake. Hydration goal 60-80 ounces/day. Will increase dose of Wegovy to 1.7 mg SC weekly and follow-up in 4 to 6 weeks. 06/29/2024: Weight: 238, BMI: 35. Patient down 18 pounds, congratulated on progress. SECA reviewed, reveals 9 pounds of fat loss and 2 pounds of muscle mass loss. Phase angle improved drastically. Waist circumference down nearly 3 inches. Patient encouraged to continue with his current lifestyle changes. Discussed the importance of adequate nutrition/protein intake in the setting of GLP-1 induced appetite suppression, adequate hydration, and continued physical activity. Plan to continue Wegovy 1 mg SC weekly and follow-up in 1 month. 05/18/2024: Weight: 256, BMI: 37.8. SECA reviewed, reveals fat loss with maintenance of muscle mass. Patient encouraged to continue making health-conscious diet choices and prioritizing protein intake. He is additionally encouraged to continue hydrating adequately. Discussed the importance of continued regular physical activity. Patient picked up refill for Wegovy 0.5 mg. Because this has been filled he will take it x 1 month. Will increase dose to Wegovy 1 mg SC weekly for him to start thereafter. Plan to follow-up in 6 weeks to assess medication efficacy. #HTN: BP in office 170/86. Patient currently taking valsartan/HCTZ 160/25 mg once daily. Patient states he has not taken his blood pressure medication as he has been on but unable to get a refill. Requested refill via the pharmacy and has not yet heard back. The patient is strongly urged to call his primary care office today to request a refill. He understands the importance of taking the medication with compliance. 04/14/2024: Weight: 257, BMI: 37.9. SECA reviewed reveals fat loss with maintenance of muscle mass. Patient encouraged to continue maintaining physical activity as tolerated given recent placement. Discussed the importance of prioritizing protein intake, goal of at least 80 g/day. Plan to increase dose of Wegovy to 0.5 mg SC weekly and follow-up in 1 month. 03/17/2024: Weight: 259, BMI: 38.2. Reviewed SECA/goals for implementing sustainable lifestyle changes. Patient is encouraged to increase physical activity, goal 8-10k steps/day. Also discussed the importance of strength training with proper safety/body mechanics for maintenance of muscle mass/bone health. Patient encouraged to drink 60-80oz water/day. Reviewed nutrition, recommending food diary x 1 week to ensure adequate caloric/protein intake. Goal of 100g protein/day. Reviewed risks, benefits, and side effects of weight management medications including phentermine, Topamax, Contrave, metformin, and GLP-1 agonist. Patient interested in GLP-1 agonist Wegovy. Denies personal/family history of medullary thyroid cancer/M EN syndrome. Rx for Wegovy 0.25 mg SC weekly sent to pharmacy. Reviewed expectations for insurance coverage/PA process. Patient would like to initiate treatment with compounded semaglutide today. Additionally, received MICC injection. All questions answered to the patient's satisfaction. Patient demonstrates understanding of diagnosis and treatments discussed. Follow-up in 4 weeks, sooner should any questions/concerns arise. Case discussed with collaborating physician Taniya Rubio who has reviewed the assessment/plan. Chart, medications, labs, and vital signs reviewed. Dictation completed with the use of [employer] voice recognition software, prone to medical misidentifications and grammatical errors. All errors are unintentional. Although the practitioner does try to identify and correct errors, some may be present. Please do not hesitate to contact the practitioner for clarification. Total time was 30 minutes spent with >50% on coordination of care and patient education. 06/29/2024 Obesity (BMI 30-39.9) (ICD-10 - E66.9) Dl is a 39-year-old male with a PMH of HTN presented for weight management follow-up. Reviewed [facility] holistic and medical approach to weight loss with emphasis on lifestyle modification. 06/29/2024: Weight: 238, BMI: 35. Patient down 18 pounds, congratulated on progress. SECA reviewed, reveals 9 pounds of fat loss and 2 pounds of muscle mass loss. Phasee angle improved drastically. Waist circumference down nearly 3 inches. Patient encouraged to continue with his current lifestyle changes. Discussed the importance of adequate nutrition/protein intake in the setting of GLP-1 induced appetite suppression, adequate hydration, and continued physical activity. Plan to continue Wegovy 1 mg SC weekly and follow-up in 1 month. 05/18/2024: Weight: 256, BMI: 37.8. SECA reviewed, reveals fat loss with maintenance of muscle mass. Patient encouraged to continue making health-conscious diet choices and prioritizing protein intake. He is additionally encouraged to continue hydrating adequately. Discussed the importance of continued regular physical activity. Patient picked up refill for Wegovy 0.5 mg. Because this has been filled he will take it x 1 month. Will increase dose to Wegovy 1 mg SC weekly for him to start thereafter. Plan to follow-up in 6 weeks to assess medication efficacy. #HTN: BP in office 170/86. Patient currently taking valsartan/HCTZ 160/25 mg once daily. Patient states he has not taken his blood pressure medication as he has been on but unable to get a refill. Requested refill via the pharmacy and has not yet heard back. The patient is strongly urged to call his primary care office today to request a refill. He understands the importance of taking the medication with compliance. 04/14/2024: Weight: 257, BMI: 37.9. SECA reviewed reveals fat loss with maintenance of muscle mass. Patient encouraged to continue maintaining physical activity as tolerated given recent placement. Discussed the importance of prioritizing protein intake, goal of at least 80 g/day. Plan to increase dose of Wegovy to 0.5 mg SC weekly and follow-up in 1 month. 03/17/2024: Weight: 259, BMI: 38.2. Reviewed SECA/goals for implementing sustainable lifestyle changes. Patient is encouraged to increase physical activity, goal 8-10k steps/day. Also discussed the importance of strength training with proper safety/body mechanics for maintenance of muscle mass/bone health. Patient encouraged to drink 60-80oz water/day. Reviewed nutrition, recommending food diary x 1 week to ensure adequate caloric/protein intake. Goal of 100g protein/day. Reviewed risks, benefits, and side effects of weight management medications including phentermine, Topamax, Contrave, metformin, and GLP-1 agonist. Patient interested in GLP-1 agonist Wegovy. Denies personal/family history of medullary thyroid cancer/M EN syndrome. Rx for Wegovy 0.25 mg SC weekly sent to pharmacy. Reviewed expectations for insurance coverage/PA process. Patient would like to initiate treatment with compounded semaglutide today. Additionally, received MICC injection. All questions answered to the patient's satisfaction. Patient demonstrates understanding of diagnosis and treatments discussed. Follow-up in 4 weeks, sooner should any questions/concerns arise. Case discussed with collaborating physician Taniya Rubio who has reviewed the assessment/plan. Chart, medications, labs, and vital signs reviewed. Dictation completed with the use of [employer] voice recognition software, prone to medical misidentifications and grammatical errors. All errors are unintentional. Although the practitioner does try to identify and correct errors, some may be present. Please do not hesitate to contact the practitioner for clarification. Total time was 30 minutes spent with >50% on coordination of care and patient education. 06/29/2024 BMI 35.0-35.9,adult (ICD-10 - Z68.35) Dl is a 39-year-old male with a PMH of HTN presented for weight management follow-up. Reviewed [facility] holistic and medical approach to weight loss with emphasis on lifestyle modification. 06/29/2024: Weight: 238, BMI: 35. Patient down 18 pounds, congratulated on progress. SECA reviewed, reveals 9 pounds of fat loss and 2 pounds of muscle mass loss. Phasee angle improved drastically. Waist circumference down nearly 3 inches. Patient encouraged to continue with his current lifestyle changes. Discussed the importance of adequate nutrition/protein intake in the setting of GLP-1 induced appetite suppression, adequate hydration, and continued physical activity. Plan to continue Wegovy 1 mg SC weekly and follow-up in 1 month. 05/18/2024: Weight: 256, BMI: 37.8. SECA reviewed, reveals fat loss with maintenance of muscle mass. Patient encouraged to continue making health-conscious diet choices and prioritizing protein intake. He is additionally encouraged to continue hydrating adequately. Discussed the importance of continued regular physical activity. Patient picked up refill for Wegovy 0.5 mg. Because this has been filled he will take it x 1 month. Will increase dose to Wegovy 1 mg SC weekly for him to start thereafter. Plan to follow-up in 6 weeks to assess medication efficacy. #HTN: BP in office 170/86. Patient currently taking valsartan/HCTZ 160/25 mg once daily. Patient states he has not taken his blood pressure medication as he has been on but unable to get a refill. Requested refill via the pharmacy and has not yet heard back. The patient is strongly urged to call his primary care office today to request a refill. He understands the importance of taking the medication with compliance. 04/14/2024: Weight: 257, BMI: 37.9. SECA reviewed reveals fat loss with maintenance of muscle mass. Patient encouraged to continue maintaining physical activity as tolerated given recent placement. Discussed the importance of prioritizing protein intake, goal of at least 80 g/day. Plan to increase dose of Wegovy to 0.5 mg SC weekly and follow-up in 1 month. 03/17/2024: Weight: 259, BMI: 38.2. Reviewed SECA/goals for implementing sustainable lifestyle changes. Patient is encouraged to increase physical activity, goal 8-10k steps/day. Also discussed the importance of strength training with proper safety/body mechanics for maintenance of muscle mass/bone health. Patient encouraged to drink 60-80oz water/day. Reviewed nutrition, recommending food diary x 1 week to ensure adequate caloric/protein intake. Goal of 100g protein/day. Reviewed risks, benefits, and side effects of weight management medications including phentermine, Topamax, Contrave, metformin, and GLP-1 agonist. Patient interested in GLP-1 agonist Wegovy. Denies personal/family history of medullary thyroid cancer/M EN syndrome. Rx for Wegovy 0.25 mg SC weekly sent to pharmacy. Reviewed expectations for insurance coverage/PA process. Patient would like to initiate treatment with compounded semaglutide today. Additionally, received MICC injection. All questions answered to the patient's satisfaction. Patient demonstrates understanding of diagnosis and treatments discussed. Follow-up in 4 weeks, sooner should any questions/concerns arise. Case discussed with collaborating physician Taniya Rubio who has reviewed the assessment/plan. Chart, medications, labs, and vital signs reviewed. Dictation completed with the use of [employer] voice recognition software, prone to medical misidentifications and grammatical errors. All errors are unintentional. Although the practitioner does try to identify and correct errors, some may be present. Please do not hesitate to contact the practitioner for clarification. Total time was 30 minutes spent with >50% on coordination of care and patient education. 07/01/2024 Obesity (BMI 30-39.9) (ICD-10 - E66.9) 07/01/2024 Obesity (BMI 30-39.9) (ICD-10 - E66.9) 05/18/2024 Obesity (BMI 30-39.9) (ICD-10 - E66.9) Dl is a 39-year-old male with a PMH of HTN presented for weight management follow-up. Reviewed [facility] holistic and medical approach to weight loss with emphasis on lifestyle modification. 05/18/2024: Weight: 256, BMI: 37.8. SECA reviewed, reveals fat loss with maintenance of muscle mass. Patient encouraged to continue making health-conscious diet choices and prioritizing protein intake. He is additionally encouraged to continue hydrating adequately. Discussed the importance of continued regular physical activity. Patient picked up refill for Wegovy 0.5 mg. Because this has been filled he will take it x 1 month. Will increase dose to Wegovy 1 mg SC weekly for him to start thereafter. Plan to follow-up in 6 weeks to assess medication efficacy. #HTN: BP in office 170/86. Patient currently taking valsartan/HCTZ 160/25 mg once daily. Patient states he has not taken his blood pressure medication as he has been on but unable to get a refill. Requested refill via the pharmacy and has not yet heard back. The patient is strongly urged to call his primary care office today to request a refill. He understands the importance of taking the medication with compliance. 04/14/2024: Weight: 257, BMI: 37.9. SECA reviewed reveals fat loss with maintenance of muscle mass. Patient encouraged to continue maintaining physical activity as tolerated given recent placement. Discussed the importance of prioritizing protein intake, goal of at least 80 g/day. Plan to increase dose of Wegovy to 0.5 mg SC weekly and follow-up in 1 month. 03/17/2024: Weight: 259, BMI: 38.2. Reviewed SECA/goals for implementing sustainable lifestyle changes. Patient is encouraged to increase physical activity, goal 8-10k steps/day. Also discussed the importance of strength training with proper safety/body mechanics for maintenance of muscle mass/bone health. Patient encouraged to drink 60-80oz water/day. Reviewed nutrition, recommending food diary x 1 week to ensure adequate caloric/protein intake. Goal of 100g protein/day. Reviewed risks, benefits, and side effects of weight management medications including phentermine, Topamax, Contrave, metformin, and GLP-1 agonist. Patient interested in GLP-1 agonist Wegovy. Denies personal/family history of medullary thyroid cancer/M EN syndrome. Rx for Wegovy 0.25 mg SC weekly sent to pharmacy. Reviewed expectations for insurance coverage/PA process. Patient would like to initiate treatment with compounded semaglutide today. Additionally, received MICC injection. All questions answered to the patient's satisfaction. Patient demonstrates understanding of diagnosis and treatments discussed. Follow-up in 4 weeks, sooner should any questions/concerns arise. Case discussed with collaborating physician Taniya Rubio who has reviewed the assessment/plan. Chart, medications, labs, and vital signs reviewed. Dictation completed with the use of [employer] voice recognition software, prone to medical misidentifications and grammatical errors. All errors are unintentional. Although the practitioner does try to identify and correct errors, some may be present. Please do not hesitate to contact the practitioner for clarification. Total time was 30 minutes spent with >50% on coordination of care and patient education. 04/14/2024 Obesity (BMI 30-39.9) (ICD-10 - E66.9) Dl is a 39-year-old male with a PMH of HTN presented for weight management follow-up. Reviewed [facility] holistic and medical approach to weight loss with emphasis on lifestyle modification. 04/14/2024: Weight: 257, BMI: 37.9. SECA reviewed reveals fat loss with maintenance of muscle mass. Patient encouraged to continue maintaining physical activity as tolerated given recent placement. Discussed the importance of prioritizing protein intake, goal of at least 80 g/day. Plan to increase dose of Wegovy to 0.5 mg SC weekly and follow-up in 1 month. 03/17/2024: Weight: 259, BMI: 38.2. Reviewed SECA/goals for implementing sustainable lifestyle changes. Patient is encouraged to increase physical activity, goal 8-10k steps/day. Also discussed the importance of strength training with proper safety/body mechanics for maintenance of muscle mass/bone health. Patient encouraged to drink 60-80oz water/day. Reviewed nutrition, recommending food diary x 1 week to ensure adequate caloric/protein intake. Goal of 100g protein/day. Reviewed risks, benefits, and side effects of weight management medications including phentermine, Topamax, Contrave, metformin, and GLP-1 agonist. Patient interested in GLP-1 agonist Wegovy. Denies personal/family history of medullary thyroid cancer/M EN syndrome. Rx for Wegovy 0.25 mg SC weekly sent to pharmacy. Reviewed expectations for insurance coverage/PA process. Patient would like to initiate treatment with compounded semaglutide today. Additionally, received MICC injection. All questions answered to the patient's satisfaction. Patient demonstrates understanding of diagnosis and treatments discussed. Follow-up in 4 weeks, sooner should any questions/concerns arise. Case discussed with collaborating physician Taniya Rubio who has reviewed the assessment/plan. Chart, medications, labs, and vital signs reviewed. Dictation completed with the use of [employer] voice recognition software, prone to medical misidentifications and grammatical errors. All errors are unintentional. Although the practitioner does try to identify and correct errors, some may be present. Please do not hesitate to contact the practitioner for clarification. Total time was 30 minutes spent with >50% on coordination of care and patient education. 04/14/2024 BMI 37.0-37.9, adult (ICD-10 - Z68.37) Dl is a 39-year-old male with a PMH of HTN presented for weight management follow-up. Reviewed [facility] holistic and medical approach to weight loss with emphasis on lifestyle modification. 04/14/2024: Weight: 257, BMI: 37.9. SECA reviewed reveals fat loss with maintenance of muscle mass. Patient encouraged to continue maintaining physical activity as tolerated given recent placement. Discussed the importance of prioritizing protein intake, goal of at least 80 g/day. Plan to increase dose of Wegovy to 0.5 mg SC weekly and follow-up in 1 month. 03/17/2024: Weight: 259, BMI: 38.2. Reviewed SECA/goals for implementing sustainable lifestyle changes. Patient is encouraged to increase physical activity, goal 8-10k steps/day. Also discussed the importance of strength training with proper safety/body mechanics for maintenance of muscle mass/bone health. Patient encouraged to drink 60-80oz water/day. Reviewed nutrition, recommending food diary x 1 week to ensure adequate caloric/protein intake. Goal of 100g protein/day. Reviewed risks, benefits, and side effects of weight management medications including phentermine, Topamax, Contrave, metformin, and GLP-1 agonist. Patient interested in GLP-1 agonist Wegovy. Denies personal/family history of medullary thyroid cancer/M EN syndrome. Rx for Wegovy 0.25 mg SC weekly sent to pharmacy. Reviewed expectations for insurance coverage/PA process. Patient would like to initiate treatment with compounded semaglutide today. Additionally, received MICC injection. All questions answered to the patient's satisfaction. Patient demonstrates understanding of diagnosis and treatments discussed. Follow-up in 4 weeks, sooner should any questions/concerns arise. Case discussed with collaborating physician Taniya Rubio who has reviewed the assessment/plan. Chart, medications, labs, and vital signs reviewed. Dictation completed with the use of [employer] voice recognition software, prone to medical misidentifications and grammatical errors. All errors are unintentional. Although the practitioner does try to identify and correct errors, some may be present. Please do not hesitate to contact the practitioner for clarification. Total time was 30 minutes spent with >50% on coordination of care and patient education. 04/14/2024 Essential hypertension (ICD-10 - I10) Dl is a 39-year-old male with a PMH of HTN presented for weight management follow-up. Reviewed [facility] holistic and medical approach to weight loss with emphasis on lifestyle modification. 04/14/2024: Weight: 257, BMI: 37.9. SECA reviewed reveals fat loss with maintenance of muscle mass. Patient encouraged to continue maintaining physical activity as tolerated given recent placement. Discussed the importance of prioritizing protein intake, goal of at least 80 g/day. Plan to increase dose of Wegovy to 0.5 mg SC weekly and follow-up in 1 month. 03/17/2024: Weight: 259, BMI: 38.2. Reviewed SECA/goals for implementing sustainable lifestyle changes. Patient is encouraged to increase physical activity, goal 8-10k steps/day. Also discussed the importance of strength training with proper safety/body mechanics for maintenance of muscle mass/bone health. Patient encouraged to drink 60-80oz water/day. Reviewed nutrition, recommending food diary x 1 week to ensure adequate caloric/protein intake. Goal of 100g protein/day. Reviewed risks, benefits, and side effects of weight management medications including phentermine, Topamax, Contrave, metformin, and GLP-1 agonist. Patient interested in GLP-1 agonist Wegovy. Denies personal/family history of medullary thyroid cancer/M EN syndrome. Rx for Wegovy 0.25 mg SC weekly sent to pharmacy. Reviewed expectations for insurance coverage/PA process. Patient would like to initiate treatment with compounded semaglutide today. Additionally, received MICC injection. All questions answered to the patient's satisfaction. Patient demonstrates understanding of diagnosis and treatments discussed. Follow-up in 4 weeks, sooner should any questions/concerns arise. Case discussed with collaborating physician Taniya Rubio who has reviewed the assessment/plan. Chart, medications, labs, and vital signs reviewed. Dictation completed with the use of [employer] voice recognition software, prone to medical misidentifications and grammatical errors. All errors are unintentional. Although the practitioner does try to identify and correct errors, some may be present. Please do not hesitate to contact the practitioner for clarification. Total time was 30 minutes spent with >50% on coordination of care and patient education. 05/18/2024 BMI 37.0-37.9, adult (ICD-10 - Z68.37) Dl is a 39-year-old male with a PMH of HTN presented for weight management follow-up. Reviewed [facility] holistic and medical approach to weight loss with emphasis on lifestyle modification. 05/18/2024: Weight: 256, BMI: 37.8. SECA reviewed, reveals fat loss with maintenance of muscle mass. Patient encouraged to continue making health-conscious diet choices and prioritizing protein intake. He is additionally encouraged to continue hydrating adequately. Discussed the importance of continued regular physical activity. Patient picked up refill for Wegovy 0.5 mg. Because this has been filled he will take it x 1 month. Will increase dose to Wegovy 1 mg SC weekly for him to start thereafter. Plan to follow-up in 6 weeks to assess medication efficacy. #HTN: BP in office 170/86. Patient currently taking valsartan/HCTZ 160/25 mg once daily. Patient states he has not taken his blood pressure medication as he has been on but unable to get a refill. Requested refill via the pharmacy and has not yet heard back. The patient is strongly urged to call his primary care office today to request a refill. He understands the importance of taking the medication with compliance. 04/14/2024: Weight: 257, BMI: 37.9. SECA reviewed reveals fat loss with maintenance of muscle mass. Patient encouraged to continue maintaining physical activity as tolerated given recent placement. Discussed the importance of prioritizing protein intake, goal of at least 80 g/day. Plan to increase dose of Wegovy to 0.5 mg SC weekly and follow-up in 1 month. 03/17/2024: Weight: 259, BMI: 38.2. Reviewed SECA/goals for implementing sustainable lifestyle changes. Patient is encouraged to increase physical activity, goal 8-10k steps/day. Also discussed the importance of strength training with proper safety/body mechanics for maintenance of muscle mass/bone health. Patient encouraged to drink 60-80oz water/day. Reviewed nutrition, recommending food diary x 1 week to ensure adequate caloric/protein intake. Goal of 100g protein/day. Reviewed risks, benefits, and side effects of weight management medications including phentermine, Topamax, Contrave, metformin, and GLP-1 agonist. Patient interested in GLP-1 agonist Wegovy. Denies personal/family history of medullary thyroid cancer/M EN syndrome. Rx for Wegovy 0.25 mg SC weekly sent to pharmacy. Reviewed expectations for insurance coverage/PA process. Patient would like to initiate treatment with compounded semaglutide today. Additionally, received MICC injection. All questions answered to the patient's satisfaction. Patient demonstrates understanding of diagnosis and treatments discussed. Follow-up in 4 weeks, sooner should any questions/concerns arise. Case discussed with collaborating physician Taniya Rubio who has reviewed the assessment/plan. Chart, medications, labs, and vital signs reviewed. Dictation completed with the use of [employer] voice recognition software, prone to medical misidentifications and grammatical errors. All errors are unintentional. Although the practitioner does try to identify and correct errors, some may be present. Please do not hesitate to contact the practitioner for clarification. Total time was 30 minutes spent with >50% on coordination of care and patient education. 06/29/2024 Essential hypertension (ICD-10 - I10) Dl is a 39-year-old male with a PMH of HTN presented for weight management follow-up. Reviewed [facility] holistic and medical approach to weight loss with emphasis on lifestyle modification. 06/29/2024: Weight: 238, BMI: 35. Patient down 18 pounds, congratulated on progress. SECA reviewed, reveals 9 pounds of fat loss and 2 pounds of muscle mass loss. Phasee angle improved drastically. Waist circumference down nearly 3 inches. Patient encouraged to continue with his current lifestyle changes. Discussed the importance of adequate nutrition/protein intake in the setting of GLP-1 induced appetite suppression, adequate hydration, and continued physical activity. Plan to continue Wegovy 1 mg SC weekly and follow-up in 1 month. 05/18/2024: Weight: 256, BMI: 37.8. SECA reviewed, reveals fat loss with maintenance of muscle mass. Patient encouraged to continue making health-conscious diet choices and prioritizing protein intake. He is additionally encouraged to continue hydrating adequately. Discussed the importance of continued regular physical activity. Patient picked up refill for Wegovy 0.5 mg. Because this has been filled he will take it x 1 month. Will increase dose to Wegovy 1 mg SC weekly for him to start thereafter. Plan to follow-up in 6 weeks to assess medication efficacy. #HTN: BP in office 170/86. Patient currently taking valsartan/HCTZ 160/25 mg once daily. Patient states he has not taken his blood pressure medication as he has been on but unable to get a refill. Requested refill via the pharmacy and has not yet heard back. The patient is strongly urged to call his primary care office today to request a refill. He understands the importance of taking the medication with compliance. 04/14/2024: Weight: 257, BMI: 37.9. SECA reviewed reveals fat loss with maintenance of muscle mass. Patient encouraged to continue maintaining physical activity as tolerated given recent placement. Discussed the importance of prioritizing protein intake, goal of at least 80 g/day. Plan to increase dose of Wegovy to 0.5 mg SC weekly and follow-up in 1 month. 03/17/2024: Weight: 259, BMI: 38.2. Reviewed SECA/goals for implementing sustainable lifestyle changes. Patient is encouraged to increase physical activity, goal 8-10k steps/day. Also discussed the importance of strength training with proper safety/body mechanics for maintenance of muscle mass/bone health. Patient encouraged to drink 60-80oz water/day. Reviewed nutrition, recommending food diary x 1 week to ensure adequate caloric/protein intake. Goal of 100g protein/day. Reviewed risks, benefits, and side effects of weight management medications including phentermine, Topamax, Contrave, metformin, and GLP-1 agonist. Patient interested in GLP-1 agonist Wegovy. Denies personal/family history of medullary thyroid cancer/M EN syndrome. Rx for Wegovy 0.25 mg SC weekly sent to pharmacy. Reviewed expectations for insurance coverage/PA process. Patient would like to initiate treatment with compounded semaglutide today. Additionally, received MICC injection. All questions answered to the patient's satisfaction. Patient demonstrates understanding of diagnosis and treatments discussed. Follow-up in 4 weeks, sooner should any questions/concerns arise. Case discussed with collaborating physician Taniya Rubio who has reviewed the assessment/plan. Chart, medications, labs, and vital signs reviewed. Dictation completed with the use of [employer] voice recognition software, prone to medical misidentifications and grammatical errors. All errors are unintentional. Although the practitioner does try to identify and correct errors, some may be present. Please do not hesitate to contact the practitioner for clarification. Total time was 30 minutes spent with >50% on coordination of care and patient education. 08/05/2024 BMI 35.0-35.9,adult (ICD-10 - Z68.35) Dl is a 39-year-old male with a PMH of HTN presented for weight management follow-up. Reviewed [facility] holistic and medical approach to weight loss with emphasis on lifestyle modification. 08/05/2024: Weight: 238, BMI: 35. Weight stable. SECA reviewed, reveals improvement in body composition -loss of fat mass and increasing muscle mass. He is encouraged to continue with his increased level of physical activity. Discussed importance of regular eating habits with prioritization of protein intake. Hydration goal 60-80 ounces/day. Will increase dose of Wegovy to 1.7 mg SC weekly and follow-up in 4 to 6 weeks. 06/29/2024: Weight: 238, BMI: 35. Patient down 18 pounds, congratulated on progress. SECA reviewed, reveals 9 pounds of fat loss and 2 pounds of muscle mass loss. Phase angle improved drastically. Waist circumference down nearly 3 inches. Patient encouraged to continue with his current lifestyle changes. Discussed the importance of adequate nutrition/protein intake in the setting of GLP-1 induced appetite suppression, adequate hydration, and continued physical activity. Plan to continue Wegovy 1 mg SC weekly and follow-up in 1 month. 05/18/2024: Weight: 256, BMI: 37.8. SECA reviewed, reveals fat loss with maintenance of muscle mass. Patient encouraged to continue making health-conscious diet choices and prioritizing protein intake. He is additionally encouraged to continue hydrating adequately. Discussed the importance of continued regular physical activity. Patient picked up refill for Wegovy 0.5 mg. Because this has been filled he will take it x 1 month. Will increase dose to Wegovy 1 mg SC weekly for him to start thereafter. Plan to follow-up in 6 weeks to assess medication efficacy. #HTN: BP in office 170/86. Patient currently taking valsartan/HCTZ 160/25 mg once daily. Patient states he has not taken his blood pressure medication as he has been on but unable to get a refill. Requested refill via the pharmacy and has not yet heard back. The patient is strongly urged to call his primary care office today to request a refill. He understands the importance of taking the medication with compliance. 04/14/2024: Weight: 257, BMI: 37.9. SECA reviewed reveals fat loss with maintenance of muscle mass. Patient encouraged to continue maintaining physical activity as tolerated given recent placement. Discussed the importance of prioritizing protein intake, goal of at least 80 g/day. Plan to increase dose of Wegovy to 0.5 mg SC weekly and follow-up in 1 month. 03/17/2024: Weight: 259, BMI: 38.2. Reviewed SECA/goals for implementing sustainable lifestyle changes. Patient is encouraged to increase physical activity, goal 8-10k steps/day. Also discussed the importance of strength training with proper safety/body mechanics for maintenance of muscle mass/bone health. Patient encouraged to drink 60-80oz water/day. Reviewed nutrition, recommending food diary x 1 week to ensure adequate caloric/protein intake. Goal of 100g protein/day. Reviewed risks, benefits, and side effects of weight management medications including phentermine, Topamax, Contrave, metformin, and GLP-1 agonist. Patient interested in GLP-1 agonist Wegovy. Denies personal/family history of medullary thyroid cancer/M EN syndrome. Rx for Wegovy 0.25 mg SC weekly sent to pharmacy. Reviewed expectations for insurance coverage/PA process. Patient would like to initiate treatment with compounded semaglutide today. Additionally, received MICC injection. All questions answered to the patient's satisfaction. Patient demonstrates understanding of diagnosis and treatments discussed. Follow-up in 4 weeks, sooner should any questions/concerns arise. Case discussed with collaborating physician Taniya Rubio who has reviewed the assessment/plan. Chart, medications, labs, and vital signs reviewed. Dictation completed with the use of [employer] voice recognition software, prone to medical misidentifications and grammatical errors. All errors are unintentional. Although the practitioner does try to identify and correct errors, some may be present. Please do not hesitate to contact the practitioner for clarification. Total time was 30 minutes spent with >50% on coordination of care and patient education. 10/28/2024 Essential hypertension (ICD-10 - I10) Dl is a 39-year-old male with a PMH of HTN presented for weight management follow-up. Reviewed [facility] holistic and medical approach to weight loss with emphasis on lifestyle modification. 10/28/2024: Weight: 226, BMI: 33.4 (-8lbs). SECA reviewed, reveals 8 pounds of fat loss and improvement in muscle mass. Patient encouraged to continue making health-conscious diet choices and prioritizing protein intake. Discussed importance of adequate hydration and maintaining active lifestyle. Will increase dose of Wegovy to 2.4 mg SC weekly and follow-up in 6 weeks. #HTN: BP in office 142/96. Patient has not yet taken BP meds today. Discussed importance of medication compliance. 09/16/2024: Weight: 234.3, BMI: 34.6. (-4lbs). 08/05/2024: Weight: 238, BMI: 35. 06/29/2024: Weight: 238, BMI: 35. (-18lbs) 05/18/2024: Weight: 256, BMI: 37.8. (-1lb) 04/14/2024: Weight: 257, BMI: 37.9. (-2lbs) 03/17/2024: Weight: 259, BMI: 38.2. All questions answered to the patient's satisfaction. Patient demonstrates understanding of diagnosis and treatments discussed. Follow-up in 4 weeks, sooner should any questions/concerns arise. Case discussed with collaborating physician Taniya Rubio who has reviewed the assessment/plan. Chart, medications, labs, and vital signs reviewed. Dictation completed with the use of [employer] voice recognition software, prone to medical misidentifications and grammatical errors. All errors are unintentional. Although the practitioner does try to identify and correct errors, some may be present. Please do not hesitate to contact the practitioner for clarification. Total time was 30 minutes spent with >50% on coordination of care and patient education. 03/17/2024 Essential hypertension (ICD-10 - I10) Dl is a 39-year-old male with a PMH of HTN presented for weight management consultation. Patient was reassured and welcomed to the practice. Discussed [facility] holistic and medical approach to weight loss with emphasis on lifestyle modification. Patient is educated that a healthy lifestyle aids in combating obesity as well as reducing the risk of developing obesity-related medical complications including but not limited to diabetes and cardiovascular disease. Detailed education provided about taking steps to initiate sustainable lifestyle changes including incorporating regular physical activity, making healthy diet choices, and prioritizing mental health. Information provided about literature including The Food Rules by Noah Gunn and Eat Fat Get Lean by Dr Paulino Matthews. Handouts including lifestyle checklist, protein content of food, low calorie snacks, and cholesterol information sheet provided. Diagnostic testing/ SECA scale offered. Discussed the importance of regular SECA scale measurements to ensure healthy weight loss. 03/17/2024: Weight: 259, BMI: 38.2. Reviewed SECA/goals for implementing sustainable lifestyle changes. Patient is encouraged to increase physical activity, goal 8-10k steps/day. Also discussed the importance of strength training with proper safety/body mechanics for maintenance of muscle mass/bone health. Patient encouraged to drink 60-80oz water/day. Reviewed nutrition, recommending food diary x 1 week to ensure adequate caloric/protein intake. Goal of 100g protein/day. Reviewed risks, benefits, and side effects of weight management medications including phentermine, Topamax, Contrave, metformin, and GLP-1 agonist. Patient interested in GLP-1 agonist Wegovy. Denies personal/family history of medullary thyroid cancer/M EN syndrome. Rx for Wegovy 0.25 mg SC weekly sent to pharmacy. Reviewed expectations for insurance coverage/PA process. Patient would like to initiate treatment with compounded semaglutide today. Additionally received MICC injection. After consultation and careful review of medical history, this patient would benefit from Wegovy based off of the following criteria met: Patient is over the age of 18 with a BMI of 38.24. Additional comorbidities include HTN. Patient has trialed other methods of weight loss including improving diet and exercise without success. This medication is prescribed by or in consultation with a board-certified obesity and weight management physician (Dr. Lelo Rubio or Dr. Pete Rubio). #HTN: Patient's BP elevated to 160/84. Taking valsartan/HCTZ 160-25 mg once daily with compliance. Patient is encouraged to monitor home BPs. If systolic pressure consistently >140 or diastolic pressure consistently >90 patient is encouraged to follow-up with primary care provider. All questions answered to the patient's satisfaction. Patient demonstrates understanding of diagnosis and treatments discussed. Follow-up at next scheduled appointment, sooner should any questions/concerns arise. Case discussed with collaborating physician Taniya Rubio who has reviewed the assessment/plan. Chart, medications, labs, and vital signs reviewed. Dictation completed with the use of [employer] voice recognition software, prone to medical misidentifications and grammatical errors. All errors are unintentional. Although the practitioner does try to identify and correct errors, some may be present. Please do not hesitate to contact the practitioner for clarification. Total time was 60 minutes spent with >50% on coordination of care and patient education. 09/16/2024 Essential hypertension (ICD-10 - I10) Dl is a 39-year-old male with a PMH of HTN presented for weight management follow-up. Reviewed [facility] holistic and medical approach to weight loss with emphasis on lifestyle modification. 09/16/2024: Weight: 234.3, BMI: 34.6. (-4lbs). SECA reviewed, reveals fat loss with maintenance of muscle mass. Patient encouraged to continue making health-conscious diet choices, hydrating adequately and maintaining active lifestyle. Discussed importance of regular eating habits and prioritization of protein intake. Plan to continue Wegovy 1.7 mg SC weekly and follow-up in 1 month. #HTN: BP in office 150/100, ran out of BP meds. PCP refusing to fill meds until patient can be seen. It appears he was last seen by his PCP about 6 months ago. Will provide 1 month refill until he can get into their office. 08/05/2024: Weight: 238, BMI: 35. 06/29/2024: Weight: 238, BMI: 35. (-18lbs) 05/18/2024: Weight: 256, BMI: 37.8. (-1lb) 04/14/2024: Weight: 257, BMI: 37.9. (-2lbs) 03/17/2024: Weight: 259, BMI: 38.2. All questions answered to the patient's satisfaction. Patient demonstrates understanding of diagnosis and treatments discussed. Follow-up in 4 weeks, sooner should any questions/concerns arise. Case discussed with collaborating physician Taniya Rubio who has reviewed the assessment/plan. Chart, medications, labs, and vital signs reviewed. Dictation completed with the use of [employer] voice recognition software, prone to medical misidentifications and grammatical errors. All errors are unintentional. Although the practitioner does try to identify and correct errors, some may be present. Please do not hesitate to contact the practitioner for clarification. Total time was 30 minutes spent with >50% on coordination of care and patient education. 03/17/2024 Nutritional counseling (ICD-10 - Z71.3) Dl is a 39-year-old male with a PMH of HTN presented for weight management consultation. Patient was reassured and welcomed to the practice. Discussed [facility] holistic and medical approach to weight loss with emphasis on lifestyle modification. Patient is educated that a healthy lifestyle aids in combating obesity as well as reducing the risk of developing obesity-related medical complications including but not limited to diabetes and cardiovascular disease. Detailed education provided about taking steps to initiate sustainable lifestyle changes including incorporating regular physical activity, making healthy diet choices, and prioritizing mental health. Information provided about literature including The Food Rules by Noah Gunn and Eat Fat Get Lean by Dr Paulino Matthews. Handouts including lifestyle checklist, protein content of food, low calorie snacks, and cholesterol information sheet provided. Diagnostic testing/ SECA scale offered. Discussed the importance of regular SECA scale measurements to ensure healthy weight loss. 03/17/2024: Weight: 259, BMI: 38.2. Reviewed SECA/goals for implementing sustainable lifestyle changes. Patient is encouraged to increase physical activity, goal 8-10k steps/day. Also discussed the importance of strength training with proper safety/body mechanics for maintenance of muscle mass/bone health. Patient encouraged to drink 60-80oz water/day. Reviewed nutrition, recommending food diary x 1 week to ensure adequate caloric/protein intake. Goal of 100g protein/day. Reviewed risks, benefits, and side effects of weight management medications including phentermine, Topamax, Contrave, metformin, and GLP-1 agonist. Patient interested in GLP-1 agonist Wegovy. Denies personal/family history of medullary thyroid cancer/M EN syndrome. Rx for Wegovy 0.25 mg SC weekly sent to pharmacy. Reviewed expectations for insurance coverage/PA process. Patient would like to initiate treatment with compounded semaglutide today. Additionally received MICC injection. After consultation and careful review of medical history, this patient would benefit from Wegovy based off of the following criteria met: Patient is over the age of 17 with a BMI of 38.24. Additional comorbidities include HTN. Patient has trialed other methods of weight loss including improving diet and exercise without success. This medication is prescribed by or in consultation with a board-certified obesity and weight management physician (Dr. Lelo Rubio or Dr. Pete Rubio). #HTN: Patient's BP elevated to 160/84. Taking valsartan/HCTZ 160-25 mg once daily with compliance. Patient is encouraged to monitor home BPs. If systolic pressure consistently >140 or diastolic pressure consistently >90 patient is encouraged to follow-up with primary care provider. All questions answered to the patient's satisfaction. Patient demonstrates understanding of diagnosis and treatments discussed. Follow-up at next scheduled appointment, sooner should any questions/concerns arise. Case discussed with collaborating physician Taniya Rubio who has reviewed the assessment/plan. Chart, medications, labs, and vital signs reviewed. Dictation completed with the use of [employer] voice recognition software, prone to medical misidentifications and grammatical errors. All errors are unintentional. Although the practitioner does try to identify and correct errors, some may be present. Please do not hesitate to contact the practitioner for clarification. Total time was 60 minutes spent with >50% on coordination of care and patient education. 08/05/2024 Essential hypertension (ICD-10 - I10) Dl is a 39-year-old male with a PMH of HTN presented for weight management follow-up. Reviewed [facility] holistic and medical approach to weight loss with emphasis on lifestyle modification. 08/05/2024: Weight: 238, BMI: 35. Weight stable. SECA reviewed, reveals improvement in body composition -loss of fat mass and increasing muscle mass. He is encouraged to continue with his increased level of physical activity. Discussed importance of regular eating habits with prioritization of protein intake. Hydration goal 60-80 ounces/day. Will increase dose of Wegovy to 1.7 mg SC weekly and follow-up in 4 to 6 weeks. 06/29/2024: Weight: 238, BMI: 35. Patient down 18 pounds, congratulated on progress. SECA reviewed, reveals 9 pounds of fat loss and 2 pounds of muscle mass loss. Phase angle improved drastically. Waist circumference down nearly 3 inches. Patient encouraged to continue with his current lifestyle changes. Discussed the importance of adequate nutrition/protein intake in the setting of GLP-1 induced appetite suppression, adequate hydration, and continued physical activity. Plan to continue Wegovy 1 mg SC weekly and follow-up in 1 month. 05/18/2024: Weight: 256, BMI: 37.8. SECA reviewed, reveals fat loss with maintenance of muscle mass. Patient encouraged to continue making health-conscious diet choices and prioritizing protein intake. He is additionally encouraged to continue hydrating adequately. Discussed the importance of continued regular physical activity. Patient picked up refill for Wegovy 0.5 mg. Because this has been filled he will take it x 1 month. Will increase dose to Wegovy 1 mg SC weekly for him to start thereafter. Plan to follow-up in 6 weeks to assess medication efficacy. #HTN: BP in office 170/86. Patient currently taking valsartan/HCTZ 160/25 mg once daily. Patient states he has not taken his blood pressure medication as he has been on but unable to get a refill. Requested refill via the pharmacy and has not yet heard back. The patient is strongly urged to call his primary care office today to request a refill. He understands the importance of taking the medication with compliance. 04/14/2024: Weight: 257, BMI: 37.9. SECA reviewed reveals fat loss with maintenance of muscle mass. Patient encouraged to continue maintaining physical activity as tolerated given recent placement. Discussed the importance of prioritizing protein intake, goal of at least 80 g/day. Plan to increase dose of Wegovy to 0.5 mg SC weekly and follow-up in 1 month. 03/17/2024: Weight: 259, BMI: 38.2. Reviewed SECA/goals for implementing sustainable lifestyle changes. Patient is encouraged to increase physical activity, goal 8-10k steps/day. Also discussed the importance of strength training with proper safety/body mechanics for maintenance of muscle mass/bone health. Patient encouraged to drink 60-80oz water/day. Reviewed nutrition, recommending food diary x 1 week to ensure adequate caloric/protein intake. Goal of 100g protein/day. Reviewed risks, benefits, and side effects of weight management medications including phentermine, Topamax, Contrave, metformin, and GLP-1 agonist. Patient interested in GLP-1 agonist Wegovy. Denies personal/family history of medullary thyroid cancer/M EN syndrome. Rx for Wegovy 0.25 mg SC weekly sent to pharmacy. Reviewed expectations for insurance coverage/[place] process. Patient would like to initiate treatment with compounded semaglutide today. Additionally, received MICC injection. All questions answered to the patient's satisfaction. Patient demonstrates understanding of diagnosis and treatments discussed. Follow-up in 4 weeks, sooner should any questions/concerns arise. Case discussed with collaborating physician Taniya Rubio who has reviewed the assessment/plan. Chart, medications, labs, and vital signs reviewed. Dictation completed with the use of [employer] voice recognition software, prone to medical misidentifications and grammatical errors. All errors are unintentional. Although the practitioner does try to identify and correct errors, some may be present. Please do not hesitate to contact the practitioner for clarification. Total time was 30 minutes spent with >50% on coordination of care and patient education. 10/28/2024 Nutritional counseling (ICD-10 - Z71.3) Dl is a 39-year-old male with a PMH of HTN presented for weight management follow-up. Reviewed [facility] holistic and medical approach to weight loss with emphasis on lifestyle modification. 10/28/2024: Weight: 226, BMI: 33.4 (-8lbs). SECA reviewed, reveals 8 pounds of fat loss and improvement in muscle mass. Patient encouraged to continue making health-conscious diet choices and prioritizing protein intake. Discussed importance of adequate hydration and maintaining active lifestyle. Will increase dose of Wegovy to 2.4 mg SC weekly and follow-up in 6 weeks. #HTN: BP in office 142/96. Patient has not yet taken BP meds today. Discussed importance of medication compliance. 09/16/2024: Weight: 234.3, BMI: 34.6. (-4lbs). 08/05/2024: Weight: 238, BMI: 35. 06/29/2024: Weight: 238, BMI: 35. (-18lbs) 05/18/2024: Weight: 256, BMI: 37.8. (-1lb) 04/14/2024: Weight: 257, BMI: 37.9. (-2lbs) 03/17/2024: Weight: 259, BMI: 38.2. All questions answered to the patient's satisfaction. Patient demonstrates understanding of diagnosis and treatments discussed. Follow-up in 4 weeks, sooner should any questions/concerns arise. Case discussed with collaborating physician Taniya Rubio who has reviewed the assessment/plan. Chart, medications, labs, and vital signs reviewed. Dictation completed with the use of [employer] voice recognition software, prone to medical misidentifications and grammatical errors. All errors are unintentional. Although the practitioner does try to identify and correct errors, some may be present. Please do not hesitate to contact the practitioner for clarification. Total time was 30 minutes spent with >50% on coordination of care and patient education. 09/16/2024 Nutritional counseling (ICD-10 - Z71.3) Dl is a 39-year-old male with a PMH of HTN presented for weight management follow-up. Reviewed [facility] holistic and medical approach to weight loss with emphasis on lifestyle modification. 09/16/2024: Weight: 234.3, BMI: 34.6. (-4lbs). SECA reviewed, reveals fat loss with maintenance of muscle mass. Patient encouraged to continue making health-conscious diet choices, hydrating adequately and maintaining active lifestyle. Discussed importance of regular eating habits and prioritization of protein intake. Plan to continue Wegovy 1.7 mg SC weekly and follow-up in 1 month. #HTN: BP in office 150/100, ran out of BP meds. PCP refusing to fill meds until patient can be seen. It appears he was last seen by his PCP about 6 months ago. Will provide 1 month refill until he can get into their office. 08/05/2024: Weight: 238, BMI: 35. 06/29/2024: Weight: 238, BMI: 35. (-18lbs) 05/18/2024: Weight: 256, BMI: 37.8. (-1lb) 04/14/2024: Weight: 257, BMI: 37.9. (-2lbs) 03/17/2024: Weight: 259, BMI: 38.2. All questions answered to the patient's satisfaction. Patient demonstrates understanding of diagnosis and treatments discussed. Follow-up in 4 weeks, sooner should any questions/concerns arise. Case discussed with collaborating physician Taniya Rubio who has reviewed the assessment/plan. Chart, medications, labs, and vital signs reviewed. Dictation completed with the use of [employer] voice recognition software, prone to medical misidentifications and grammatical errors. All errors are unintentional. Although the practitioner does try to identify and correct errors, some may be present. Please do not hesitate to contact the practitioner for clarification. Total time was 30 minutes spent with >50% on coordination of care and patient education. 06/29/2024 Nutritional counseling (ICD-10 - Z71.3) Dl is a 39-year-old male with a PMH of HTN presented for weight management follow-up. Reviewed [facility] holistic and medical approach to weight loss with emphasis on lifestyle modification. 06/29/2024: Weight: 238, BMI: 35. Patient down 18 pounds, congratulated on progress. SECA reviewed, reveals 9 pounds of fat loss and 2 pounds of muscle mass loss. Phasee angle improved drastically. Waist circumference down nearly 3 inches. Patient encouraged to continue with his current lifestyle changes. Discussed the importance of adequate nutrition/protein intake in the setting of GLP-1 induced appetite suppression, adequate hydration, and continued physical activity. Plan to continue Wegovy 1 mg SC weekly and follow-up in 1 month. 05/18/2024: Weight: 256, BMI: 37.8. SECA reviewed, reveals fat loss with maintenance of muscle mass. Patient encouraged to continue making health-conscious diet choices and prioritizing protein intake. He is additionally encouraged to continue hydrating adequately. Discussed the importance of continued regular physical activity. Patient picked up refill for Wegovy 0.5 mg. Because this has been filled he will take it x 1 month. Will increase dose to Wegovy 1 mg SC weekly for him to start thereafter. Plan to follow-up in 6 weeks to assess medication efficacy. #HTN: BP in office 170/86. Patient currently taking valsartan/HCTZ 160/25 mg once daily. Patient states he has not taken his blood pressure medication as he has been on but unable to get a refill. Requested refill via the pharmacy and has not yet heard back. The patient is strongly urged to call his primary care office today to request a refill. He understands the importance of taking the medication with compliance. 04/14/2024: Weight: 257, BMI: 37.9. SECA reviewed reveals fat loss with maintenance of muscle mass. Patient encouraged to continue maintaining physical activity as tolerated given recent placement. Discussed the importance of prioritizing protein intake, goal of at least 80 g/day. Plan to increase dose of Wegovy to 0.5 mg SC weekly and follow-up in 1 month. 03/17/2024: Weight: 259, BMI: 38.2. Reviewed SECA/goals for implementing sustainable lifestyle changes. Patient is encouraged to increase physical activity, goal 8-10k steps/day. Also discussed the importance of strength training with proper safety/body mechanics for maintenance of muscle mass/bone health. Patient encouraged to drink 60-80oz water/day. Reviewed nutrition, recommending food diary x 1 week to ensure adequate caloric/protein intake. Goal of 100g protein/day. Reviewed risks, benefits, and side effects of weight management medications including phentermine, Topamax, Contrave, metformin, and GLP-1 agonist. Patient interested in GLP-1 agonist Wegovy. Denies personal/family history of medullary thyroid cancer/M EN syndrome. Rx for Wegovy 0.25 mg SC weekly sent to pharmacy. Reviewed expectations for insurance coverage/PA process. Patient would like to initiate treatment with compounded semaglutide today. Additionally, received MICC injection. All questions answered to the patient's satisfaction. Patient demonstrates understanding of diagnosis and treatments discussed. Follow-up in 4 weeks, sooner should any questions/concerns arise. Case discussed with collaborating physician Taniya Rubio who has reviewed the assessment/plan. Chart, medications, labs, and vital signs reviewed. Dictation completed with the use of [employer] voice recognition software, prone to medical misidentifications and grammatical errors. All errors are unintentional. Although the practitioner does try to identify and correct errors, some may be present. Please do not hesitate to contact the practitioner for clarification. Total time was 30 minutes spent with >50% on coordination of care and patient education. 05/18/2024 Essential hypertension (ICD-10 - I10) Dl is a 39-year-old male with a PMH of HTN presented for weight management follow-up. Reviewed [facility] holistic and medical approach to weight loss with emphasis on lifestyle modification. 05/18/2024: Weight: 256, BMI: 37.8. SECA reviewed, reveals fat loss with maintenance of muscle mass. Patient encouraged to continue making health-conscious diet choices and prioritizing protein intake. He is additionally encouraged to continue hydrating adequately. Discussed the importance of continued regular physical activity. Patient picked up refill for Wegovy 0.5 mg. Because this has been filled he will take it x 1 month. Will increase dose to Wegovy 1 mg SC weekly for him to start thereafter. Plan to follow-up in 6 weeks to assess medication efficacy. #HTN: BP in office 170/86. Patient currently taking valsartan/HCTZ 160/25 mg once daily. Patient states he has not taken his blood pressure medication as he has been on but unable to get a refill. Requested refill via the pharmacy and has not yet heard back. The patient is strongly urged to call his primary care office today to request a refill. He understands the importance of taking the medication with compliance. 04/14/2024: Weight: 257, BMI: 37.9. SECA reviewed reveals fat loss with maintenance of muscle mass. Patient encouraged to continue maintaining physical activity as tolerated given recent placement. Discussed the importance of prioritizing protein intake, goal of at least 80 g/day. Plan to increase dose of Wegovy to 0.5 mg SC weekly and follow-up in 1 month. 03/17/2024: Weight: 259, BMI: 38.2. Reviewed SECA/goals for implementing sustainable lifestyle changes. Patient is encouraged to increase physical activity, goal 8-10k steps/day. Also discussed the importance of strength training with proper safety/body mechanics for maintenance of muscle mass/bone health. Patient encouraged to drink 60-80oz water/day. Reviewed nutrition, recommending food diary x 1 week to ensure adequate caloric/protein intake. Goal of 100g protein/day. Reviewed risks, benefits, and side effects of weight management medications including phentermine, Topamax, Contrave, metformin, and GLP-1 agonist. Patient interested in GLP-1 agonist Wegovy. Denies personal/family history of medullary thyroid cancer/M EN syndrome. Rx for Wegovy 0.25 mg SC weekly sent to pharmacy. Reviewed expectations for insurance coverage/PA process. Patient would like to initiate treatment with compounded semaglutide today. Additionally, received MICC injection. All questions answered to the patient's satisfaction. Patient demonstrates understanding of diagnosis and treatments discussed. Follow-up in 4 weeks, sooner should any questions/concerns arise. Case discussed with collaborating physician Taniya Rubio who has reviewed the assessment/plan. Chart, medications, labs, and vital signs reviewed. Dictation completed with the use of [employer] voice recognition software, prone to medical misidentifications and grammatical errors. All errors are unintentional. Although the practitioner does try to identify and correct errors, some may be present. Please do not hesitate to contact the practitioner for clarification. Total time was 30 minutes spent with >50% on coordination of care and patient education. 04/14/2024 Nutritional counseling (ICD-10 - Z71.3) Dl is a 39-year-old male with a PMH of HTN presented for weight management follow-up. Reviewed [facility] holistic and medical approach to weight loss with emphasis on lifestyle modification. 04/14/2024: Weight: 257, BMI: 37.9. SECA reviewed reveals fat loss with maintenance of muscle mass. Patient encouraged to continue maintaining physical activity as tolerated given recent placement. Discussed the importance of prioritizing protein intake, goal of at least 80 g/day. Plan to increase dose of Wegovy to 0.5 mg SC weekly and follow-up in 1 month. 03/17/2024: Weight: 259, BMI: 38.2. Reviewed SECA/goals for implementing sustainable lifestyle changes. Patient is encouraged to increase physical activity, goal 8-10k steps/day. Also discussed the importance of strength training with proper safety/body mechanics for maintenance of muscle mass/bone health. Patient encouraged to drink 60-80oz water/day. Reviewed nutrition, recommending food diary x 1 week to ensure adequate caloric/protein intake. Goal of 100g protein/day. Reviewed risks, benefits, and side effects of weight management medications including phentermine, Topamax, Contrave, metformin, and GLP-1 agonist. Patient interested in GLP-1 agonist Wegovy. Denies personal/family history of medullary thyroid cancer/M EN syndrome. Rx for Wegovy 0.25 mg SC weekly sent to pharmacy. Reviewed expectations for insurance coverage/PA process. Patient would like to initiate treatment with compounded semaglutide today. Additionally, received MICC injection. All questions answered to the patient's satisfaction. Patient demonstrates understanding of diagnosis and treatments discussed. Follow-up in 4 weeks, sooner should any questions/concerns arise. Case discussed with collaborating physician Taniya Rubio who has reviewed the assessment/plan. Chart, medications, labs, and vital signs reviewed. Dictation completed with the use of [employer] voice recognition software, prone to medical misidentifications and grammatical errors. All errors are unintentional. Although the practitioner does try to identify and correct errors, some may be present. Please do not hesitate to contact the practitioner for clarification. Total time was 30 minutes spent with >50% on coordination of care and patient education. 05/18/2024 Nutritional counseling (ICD-10 - Z71.3) Dl is a 39-year-old male with a PMH of HTN presented for weight management follow-up. Reviewed [facility] holistic and medical approach to weight loss with emphasis on lifestyle modification. 05/18/2024: Weight: 256, BMI: 37.8. SECA reviewed, reveals fat loss with maintenance of muscle mass. Patient encouraged to continue making health-conscious diet choices and prioritizing protein intake. He is additionally encouraged to continue hydrating adequately. Discussed the importance of continued regular physical activity. Patient picked up refill for Wegovy 0.5 mg. Because this has been filled he will take it x 1 month. Will increase dose to Wegovy 1 mg SC weekly for him to start thereafter. Plan to follow-up in 6 weeks to assess medication efficacy. #HTN: BP in office 170/86. Patient currently taking valsartan/HCTZ 160/25 mg once daily. Patient states he has not taken his blood pressure medication as he has been on but unable to get a refill. Requested refill via the pharmacy and has not yet heard back. The patient is strongly urged to call his primary care office today to request a refill. He understands the importance of taking the medication with compliance. 04/14/2024: Weight: 257, BMI: 37.9. SECA reviewed reveals fat loss with maintenance of muscle mass. Patient encouraged to continue maintaining physical activity as tolerated given recent placement. Discussed the importance of prioritizing protein intake, goal of at least 80 g/day. Plan to increase dose of Wegovy to 0.5 mg SC weekly and follow-up in 1 month. 03/17/2024: Weight: 259, BMI: 38.2. Reviewed SECA/goals for implementing sustainable lifestyle changes. Patient is encouraged to increase physical activity, goal 8-10k steps/day. Also discussed the importance of strength training with proper safety/body mechanics for maintenance of muscle mass/bone health. Patient encouraged to drink 60-80oz water/day. Reviewed nutrition, recommending food diary x 1 week to ensure adequate caloric/protein intake. Goal of 100g protein/day. Reviewed risks, benefits, and side effects of weight management medications including phentermine, Topamax, Contrave, metformin, and GLP-1 agonist. Patient interested in GLP-1 agonist Wegovy. Denies personal/family history of medullary thyroid cancer/M EN syndrome. Rx for Wegovy 0.25 mg SC weekly sent to pharmacy. Reviewed expectations for insurance coverage/PA process. Patient would like to initiate treatment with compounded semaglutide today. Additionally, received MICC injection. All questions answered to the patient's satisfaction. Patient demonstrates understanding of diagnosis and treatments discussed. Follow-up in 4 weeks, sooner should any questions/concerns arise. Case discussed with collaborating physician Taniya Rubio who has reviewed the assessment/plan. Chart, medications, labs, and vital signs reviewed. Dictation completed with the use of [employer] voice recognition software, prone to medical misidentifications and grammatical errors. All errors are unintentional. Although the practitioner does try to identify and correct errors, some may be present. Please do not hesitate to contact the practitioner for clarification. Total time was 30 minutes spent with >50% on coordination of care and patient education. 08/05/2024 Nutritional counseling (ICD-10 - Z71.3) Dl is a 39-year-old male with a PMH of HTN presented for weight management follow-up. Reviewed [facility] holistic and medical approach to weight loss with emphasis on lifestyle modification. 08/05/2024: Weight: 238, BMI: 35. Weight stable. SECA reviewed, reveals improvement in body composition -loss of fat mass and increasing muscle mass. He is encouraged to continue with his increased level of physical activity. Discussed importance of regular eating habits with prioritization of protein intake. Hydration goal 60-80 ounces/day. Will increase dose of Wegovy to 1.7 mg SC weekly and follow-up in 4 to 6 weeks. 06/29/2024: Weight: 238, BMI: 35. Patient down 18 pounds, congratulated on progress. SECA reviewed, reveals 9 pounds of fat loss and 2 pounds of muscle mass loss. Phase angle improved drastically. Waist circumference down nearly 3 inches. Patient encouraged to continue with his current lifestyle changes. Discussed the importance of adequate nutrition/protein intake in the setting of GLP-1 induced appetite suppression, adequate hydration, and continued physical activity. Plan to continue Wegovy 1 mg SC weekly and follow-up in 1 month. 05/18/2024: Weight: 256, BMI: 37.8. SECA reviewed, reveals fat loss with maintenance of muscle mass. Patient encouraged to continue making health-conscious diet choices and prioritizing protein intake. He is additionally encouraged to continue hydrating adequately. Discussed the importance of continued regular physical activity. Patient picked up refill for Wegovy 0.5 mg. Because this has been filled he will take it x 1 month. Will increase dose to Wegovy 1 mg SC weekly for him to start thereafter. Plan to follow-up in 6 weeks to assess medication efficacy. #HTN: BP in office 170/86. Patient currently taking valsartan/HCTZ 160/25 mg once daily. Patient states he has not taken his blood pressure medication as he has been on but unable to get a refill. Requested refill via the pharmacy and has not yet heard back. The patient is strongly urged to call his primary care office today to request a refill. He understands the importance of taking the medication with compliance. 04/14/2024: Weight: 257, BMI: 37.9. SECA reviewed reveals fat loss with maintenance of muscle mass. Patient encouraged to continue maintaining physical activity as tolerated given recent placement. Discussed the importance of prioritizing protein intake, goal of at least 80 g/day. Plan to increase dose of Wegovy to 0.5 mg SC weekly and follow-up in 1 month. 03/17/2024: Weight: 259, BMI: 38.2. Reviewed SECA/goals for implementing sustainable lifestyle changes. Patient is encouraged to increase physical activity, goal 8-10k steps/day. Also discussed the importance of strength training with proper safety/body mechanics for maintenance of muscle mass/bone health. Patient encouraged to drink 60-80oz water/day. Reviewed nutrition, recommending food diary x 1 week to ensure adequate caloric/protein intake. Goal of 100g protein/day. Reviewed risks, benefits, and side effects of weight management medications including phentermine, Topamax, Contrave, metformin, and GLP-1 agonist. Patient interested in GLP-1 agonist Wegovy. Denies personal/family history of medullary thyroid cancer/M EN syndrome. Rx for Wegovy 0.25 mg SC weekly sent to pharmacy. Reviewed expectations for insurance coverage/PA process. Patient would like to initiate treatment with compounded semaglutide today. Additionally, received MICC injection. All questions answered to the patient's satisfaction. Patient demonstrates understanding of diagnosis and treatments discussed. Follow-up in 4 weeks, sooner should any questions/concerns arise. Case discussed with collaborating physician Taniya Rubio who has reviewed the assessment/plan. Chart, medications, labs, and vital signs reviewed. Dictation completed with the use of [employer] voice recognition software, prone to medical misidentifications and grammatical errors. All errors are unintentional. Although the practitioner does try to identify and correct errors, some may be present. Please do not hesitate to contact the practitioner for clarification. Total time was 30 minutes spent with >50% on coordination of care and patient education. Plan Of Treatment Pending Test Test Name Order Date 25OH VITAMIN D 03/17/2024 HEMOGLOBIN A1C 03/17/2024 LIPID PANEL 03/17/2024 TSH WITH REFLEX TO FT4 03/17/2024 CBC with Differential 03/17/2024 Next Appt Details Provider Name:CHARLOTTE Foley, 12/09/2024 03:30:00 PM, [address] [facility] [address], [place], [address], Insurance Providers Payer Name Payer Address Payer Phone Subscriber Number Group Number Insured Name Patient Relationship to Insured Coverage Start Date Coverage End Date [facility] [address] [place] [address] [id number] Dl Lazo Self - patient is the insured Medications Administered Medication Instructions Date of Administration Dosage Notes MICC B12 INJECTION 03/17/2024 1 mL Semaglutide 03/17/2024 .25 mg Semaglutide 07/10/2024 1 mg Medical (General) History Medical History History ICD Code Essential hypertension I10 Gout involving toe of right foot, unspec ified cause, unspecified chronicity M10.9 Arthritis of right knee M17.11 Surgical History Surgery Date(Month/Year) Left knee replacement 12/2023 left knee scope 12/2019 Left arm ulna shortening 2002 Hospitalization History Reason Date(Month/Year) [place]abel[facility] 1988
--- OUTSIDE RECORDS SUMMARY | 2024-12-08 01:35 | XMS_ITS | Encounter Summary ---
Author Organization Formerly [facility] Address [address] [place] [address] Phone Care Team Providers Care Press Operator Heavy Duty Name Role Phone Marco A Erickson MD Primary Care Provider [phone] Marco A Erickson MD Unavailable Reason for Visit * Reason Onset Date Comments Pre-op Education/coordination 11/11/2023 Encounter Details Date Type Department Care Team (Late st Contact Info) Description 11/11/2023 Telephone [facility] [address] [place] [address] Marco A Erickson MD [address] [place] [address] [email or web address] Pre-op Education/coordination Social History Tobacco Use Types Packs/Day Years Used Date Smoking Tobacco: Never Passive Smoke Exposure: Past Smokeless Tobacco: Never Alcohol Use Standard Drinks/Week Comments Yes 6 (1 standard drink = 0.6 oz pur e alcohol) beer 6-12 Education Answer Date Recorded Are you interested in more education? Not on danica e 07/13/2022 Are you concerned about learning? Not on file 07/13/2022 No 07/13/2022 No 07/13/2022 Digital Access Answer Date Recorded No 08/11/2022 No 08/11/2022 Reliable internet access at home? Not on file 08/11/2022 Device with a working camera? Not on file Sex and Gender Information Value Date Recorded Sex Assigned at Male 04/18/2022 9:45 AM EST Legal Sex Male 8:40 AM EDT Gender Identity Male 04/18/2022 9:45 AM EST Sexual Orientation Straight 04/18/2022 9: 45 AM EST documented as of this encounter Progress Notes * Gabriella Benton MA - 12/10/2023 2:00 PM EDT Huddle note updated * Itzel Traylor - 12/10/2023 1:25 PM EDT Forms has been completed and placed in SpareTime bin. * Itzel Traylor - 12/05/2023 11:34 AM EDT Patient scheduled for a pre op appointment with MARY Albright. Pre-op form partially completed, awaiting call from [facility] to complete form. * Clarissa Patterson - 12/05/2023 11:17 AM EDT Pt called in. He needs another pre op for his knee replacement that is on 01/06. Please advise thank you. Central [employer] (Please do not reply to this user; this inbox is not monitored.) Thank you. * Estefany Vasques - 11/11/2023 10:17 AM EDT Spoke to Ana Maria, coordinator for ortho. Pre op form completed and placed in provider box. documented in this encounter Plan of Treatment Not on file documented as of this encounter Visit Diagnoses Not on filedocumented in this encounter Additional Health Concerns Assessment Noted Time PHQ-2 Depression Total Score: 0 10/07/19 5:05 AM EDT documented as of this encounter Care Teams Press Operator Heavy Duty Relationship Specialty Start Date End Date Marco A Erickson MD [address] [place] [address] [email or web address] PCP - General Internal Medicine 01/14/19 Marco A Erickson MD [address] [place] [address] [email or web address] Insurance Assigned Provider 06/22/23 07/25/24 documented as of this encounter Additional Source Comments The information contained in this document represents components of the legal health record. It is not the complete legal health record.Formerly [facility]
--- OUTSIDE RECORDS SUMMARY | 2024-12-08 01:35 | XMS_ITS | Clinical Summary ---
Author Organization [facility] Address [address] [place] [address] Care Team Providers Care Tdp Displays Analyst Name Role Phone Unavailable Primary Care Provider Unavailabl e Immunizations Name Administration Dates Next Due Moderna SARS-CoV-2 COVID-19, mRNA, LNP-S, preservative free 06/02/2020 Surgical History Surgery Date Site/Laterality Comments OTHER SURGICAL HISTORY PROCEDURE: HISTORICAL ARM SURGERY; COMMENT: Dr. Cohen, right wrist and left arm surgery Family History Medical History Relation Name Comments Hypertension Father Relation Name Status Comments Brother htn Father htn Social History Tobacco Use Types Packs/Day Years Used Date Smoking Tobacco: Never Alcohol Use Standard Drinks/Week Comments Not Asked 0 (1 standard drink = 0.6 oz pur e alcohol) Sex and Gender Information Value Date Recorded Sex Assigned at Not on file Legal Sex Male 8:27 PM EST Gender Identity Not on file Sexual Orientation Not on file Obstetrics History Plan of Treatment Health Maintenance Due Date Last Done Comments DTaP,Tdap,and Td Vaccines (1 - Tdap) 2003 Hepatitis B Vaccines (1 of 3 - 19+ 3-dose series) 2003 Cholesterol Screening (Lipid Panel) 04/12/2023 HIV Screening 04/12/2023 Hepatitis C Screening 04/12/2023 Social Influencers of Health Screening 04/12/2023 Hypertension/CHF/CAD Annual BMP Blood Test 05/03/2023 Depression Screening 03/18/2024 COVID-19 Vaccine (2 - 2024-2 6 season) 2024 06/02/2020 Influenza Vaccine (#1) 2024 HIB Vaccines Aged Out No longer eligi ble based on patient's age to complete this topic HPV Vaccines Aged Out No longer eligi ble based on patient's age to complete this topic Hepatitis A Vaccines Aged Out No long er eligible based on patient's age to complete this topic IPV Vaccines Aged Out No longer eligi ble based on patient's age to complete this topic MMR Vaccines Aged Out No longer eligi ble based on patient's age to complete this topic Meningococcal ACWY Vaccine Aged Out N o longer eligible based on patient's age to complete this topic Meningococcal B Vaccine Aged Out No l onger eligible based on patient's age to complete this topic Pneumococcal Vaccine: Pediat rics (0 to 5 Years) and At-Risk Patients (6 to 49 Years) Aged Out No longer eligi ble based on patient's age to complete this topic RSV Immunization Patients Un jenifer 20 months Aged Out No longer eligible b ased on patient's age to complete this topic Varicella Vaccines Aged Out No longer eligible based on patient's age to complete this topic
--- OUTSIDE RECORDS SUMMARY | 2024-12-08 01:35 | XMS_ITS | Clinical Summary ---
Author Organization [facility] Address [address] [place] [id number] Phone Care Team Providers Care Track Inspecting Supervisor Name Role Phone Marco A Erickson MD Primary Care Provider [phone] Allergies Active Allergy Reactions Criticality Noted Date Comments Lisinopril Cough 11/18/2018 Medications valsartan-hydroCH LOROthiazide (DIOVAN-HCT) 160-25 mg per tabletIndications :Benign essential hypertension Take 1 tablet by mouth daily. 90 tablet 05/18/2024 Active Active Problems Problem Noted Date Diagnosed Date Acute medial meniscus tear of left knee 11/14/19 24 Assessment & Plan (11/14/2023 4:53 PM EDT): Patient's exam unremarkable with a mildly elevated systolic blood pressure but not worrisome enough to require adjustments. Encouraging patient to check blood pressure at home. He may advance to the arthroscopy without any further cardiovascular workup needed. Will obtain a CBC with differential and Chem-7 as part of the consult request. He is currently not taking aspirin daily. Hyperuricemia 11/14/2023 Assessment & Plan (11/14/2023 4:52 PM EDT): No recent bouts of gout, he is on hydrochlorothiazide so let us obtain a uric acid level with the upcoming labs. Pre-op evaluation 11/14/2023 Assessment & Plan (12/23/2023 8:37 AM EDT): Patient recently seen for preop visit for arthroplasty of the left knee back in October and underwent an EKG which showed slight U waves in V3 however otherwise normal. His blood pressure has been well-controlled on Diovan. Labs CBC/BMP well within normal limits. Patient is set for a left arthroplasty total knee replacement with spinal with nerve block with Dr. Gill at [facility] on 01/07/2024 patient at this time is cleared for surgery. This has been discussed with Dr. Erickson and reviewing his EKG from prior as well as labs. Acute idiopathic gout involving toe of right wade t 06/10/2019 Assessment & Plan (01/29/2023 2:34 PM EST): With starting HCTZ will obtain uric acid level in 2 weeks. Assessment & Plan (06/10/2019 2:53 PM EDT): As this is a telephone visit we cannot be 100% sure that this is gout though it is behaving like it did on the previous attack that was diagnosed as a gout attack in the ER. Whether this is a gout attack or an osteoarthritic flareup or ligament rupture we would like the patient to go on prednisone for 7 days. If by 3 days things are not getting better we will then see him in the office. I discussed with him the importance of avoiding foods that can contribute to uric acid levels in the blood including alcohol, shellfish, tomatoes, heavy rich gravies and meats. If the redness worsens despite the prednisone and this might be a sign of a cellulitis or paronychia, then we would see him more urgently here in the office. As a side note he had no signs of respiratory illness. History of disruption of posterior cruciate liga ment 11/18/2018 KARLY (generalized anxiety disorder) 11/18/2018 Assessment & Plan (11/18/2018 9:33 AM EDT): Patient's confirms that he has an anxiety issue but this is more based on life realities such as bills that he takes very seriously. He did not wish to see a counselor and it did not appear to either of us that medicine would be of any use to him. I did talk to him briefly on financial skills to reduce household expenses and get ahead of the monies owed. Class 2 severe obesity due t o excess calories with serious comorbidity in adult 11/18/2018 Assessment & Plan (01/29/2023 2:34 PM EST): Please see HPI for discussion Assessment & Plan (04/18/2022 10:14 AM EST): counseled the pt on eating a low calorie diet to reduce excess weight. We talked about calorie restriction, weight watchers and exercise as possible to help move weight in the right direction. Assessment & Plan (01/06/2020 2:07 PM EDT): counseled the pt on eating a low calorie diet to reduce excess weight. We talked about calorie restriction, weight watchers and exercise as possible to help move weight in the right direction. Assessment & Plan (05/27/2019 5:34 PM EDT): Discussion about weight watchers, discussion about weight loss and positive benefits for weightbearing joints including the knees especially the left one. Patient was noted to have moderately elevated blood sugars, [id number] A1c coming back at 5.6% just on the verge of prediabetes. Therefore the weight watchers as the best avenue for both weight loss, prevention of progression to prediabetes and overall health. Assessment & Plan (11/18/2018 9:32 AM EDT): Talked about weight watchers and concepts with him weight watchers as a means of taking weight off and keeping it off. Exercise as a adjunct. Approximately 10 minutes discussed with the patient about weight loss management. This would be especially good for his knees as any 10 pound weight loss conveys 40 pounds with the knee. Benign essential hypertension 11/06/2010 Overview (11/18/2018): Hypertension since age 18, extensive positive family history for such, patient previously positive for KYLE inhibitor related cough, previously on losartan with moderate effect. Assessment & Plan (12/23/2023 8:35 AM EDT): Continue Diovan Assessment & Plan (11/14/2023 4:51 PM EDT): Blood pressure fairly well-controlled with the Diovan and hydrochlorothiazide. As part of the preop consult will obtain electrolytes and kidney function. Also will check blood sugar. For this exam we are recommending he continue with valsartan/hydrochlorothiazide also on the day of the surgery. No further cardiovascular workup needed. Low-sodium diet reinforced. Assessment & Plan (01/29/2023 2:35 PM EST): Switch Cozaar for at Diovan 160/25 mg hydrochlorothiazide daily. Check Chem-7 and uric acid level in 2 weeks. Patient encouraged to check blood pressure at home daily. Counseled on low-sodium diet. Assessment & Plan (04/18/2022 10:13 AM EST): Assures me no alcoholism, will be watching salt more carefully also hidden salt. Increase Cozaar from 50 up to 100 mg daily. If blood pressures continue to be in the 130s at home will add on hydrochlorothiazide. Today check electrolytes kidney function. Assessment & Plan (01/06/2020 2:04 PM EDT): Today's blood pressure little bit elevated as patient was off of his losartan. Even at this current level the patient would be okay for surgery at the end of the month. Nonetheless I will restart the losartan and we will call in the prescription today. There appears to be a national shortage of the losartan according to [facility] but if that is not true he can continue with that otherwise we can convert him to a different ARB. He has a blood pressure cuff at home and promised to monitor his blood pressure with the guidance of 120/72 140/90 for therapy efficacy. Assessment & Plan (05/27/2019 5:33 PM EDT): We can maintain the losartan but if blood pressure on physical exam in 3 months persistent high will then switch or increase. Low-sodium diet reinforced, we think that part of the elevated blood pressure this time is pain related associated with the knee. Assessment & Plan (11/18/2018 9:31 AM EDT): Patient's blood pressure here also elevated in the context of BMI 36.9. #1 encourage patient to picker/puller a exercise regimen both for cardiovascular fitness but also to lower blood pressure. #2 low-sodium diet recommended. #3 restart losartan at 50 mg daily and patient will check blood pressure at home using automatic cuff. Follow-up blood pressure in 2 months, we can ramp up the losartan or exchange for a different one non-KYLE inhibitor if need be. Chem-7 today to assess electrolytes kidney function and blood sugar. Resolved Problems Problem Noted Date Diagnosed Date Resolved Date Puncture wound of left heel 07/10/2019 11/14/2023 Assessment & Plan (07/10/2019 1:31 PM EDT): Deep tissue infection possible if not probable after stepping on a nail left heel. To prevent this from abscessing Augmentin 875 mg twice daily for 7 days, if the heel pain worsens he will call us up and we will obtain an x-ray. Podiatry referral could be considered if needed. Patient will stay off of the heel over the weekend. Pain and swelling of left knee 11/18/2018 11/14/2023 Overview (11/18/2018): He tore his left PCL many years ago and was seen by a orthopedist over at [facility]. Is received left-sided multiple cortisone injections to left knee. He has been favoring his right knee ever since and he feels that now a 2- week history of right knee pain is associated with favoring the right knee. Assessment & Plan (01/06/2020 2:07 PM EDT): History of loose body within the left knee joint, requirement of bone spurs and degenerative changes to be cleaned up, this is a low risk procedure in a patient who himself is low risk for morbidity and cardiovascular risk. Therefore we have no issues clearing this patient for the upcoming surgery. He should continue the losartan the morning of the surgery. In the context of his hypertension we will obtain a Chem-7, most recent Chem-7 from few months prior was negative for hyperkalemia or renal failure. We note that the patient has a normal hemoglobin A1c previously done this year. Assessment & Plan (05/27/2019 5:36 PM EDT): Pre-existing injury left PCL 2010 during a softball tournament. Patient at [facility] 1 month ago with pain and swelling in the left knee. 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 Subsequent to this he has bursitis of the knee prepatellar and signs of a knee effusion of the left knee. Ice at night after work, left knee brace for now, referral to [facility] orthopedics, continue with Celebrex 100 mg twice daily given hypertension. Patient had previously been seen at [facility] but wanted to have a second opinion. Assessment & Plan (11/18/2018 9:37 AM EDT): Patient's has right anterior knee pain in the medial aspect a little bit below patella, unclear of cause, will refer patient to orthopedist here within network for further assessment. To benefit both knees but keep patient from raising blood pressure we will start patient on Celebrex 100 mg twice daily or 200 mg daily, patient will refill medicine effective. Immunizations Immunization Administration Dates Next Due COVID-19 (Pre-01/07) Moderna Vaccine, mRNA, PF 06/02/2020 Influenza Quadrivalent Preservative Free IM 01/16,04/18/2022,12/22/2018 Tdap 05/01/2016 Family History Medical History Relation Comments Hypertension Brother 1 Hypertension Brother 2 Hypertension Father Prostate cancer Father Psychiatric disorder Father Alcohol abuse Mother Esophageal cancer Paternal Grandfather Cancer Paternal Grandmother Heart disease Paternal Grandmother Hypertension Sister Relation Status Comments Brother 1 Alive Brother 2 Alive Father Alive Mother Alive Paternal Grandfather Paternal Grandmother Sister Alive Social History Tobacco Use Types Packs/Day Years Used Date Smoking Tobacco: Never Passive Smoke Exposure: Past Smokeless Tobacco: Never Tobacco Cessation:Counseling Given: Not Answered Alcohol Use Standard Drinks/Week Comments Yes 6 (1 standard drink = 0.6 oz pur e alcohol) beer 6 Education Answer Date Recorded Are you interested [...] Orientation Straight 04/18/2022 9: 45 AM EST Last Filed Vital Signs Vital Sign Reading Time Taken Comments Blood Pressure 132/84 12/23/2023 7:41 AM EDT Pulse 82 12/23/2023 7:41 AM EDT Temperature 36.2 C (97.2 F) 11/14/2023 11:03 AM EDT Respiratory Rate 16 12/23/2023 7:41 AM EDT Oxygen Saturation 98% 12/23/2023 7:41 AM EDT Inhaled Oxygen Concentration - - Weight 116.1 kg (256 lb) 12/23/2023 7:41 AM EDT Height 177.8 cm (5' 10 ) 12/23/2023 7:41 AM EDT Body Mass Index 36.73 12/23/2023 7:41 AM EDT Plan of Treatment Health Maintenance Due Date Last Done Comments BLOOD PRESSURE 06/22/2024 12/23/2023 DEPRESSION SCREENING 10/06/2024 10/07/2023 INFLUENZA VACCINE (#1) 2024 , 04/18/2022, 12/22/2018 CREATININE LEVEL 11/13/2024 11/14/2023, 03/2022, 01/06/2020, Additional history exists POTASSIUM LEVEL 11/13/2024 11/14/2023, 02/0 03/2022, 01/06/2020, Additional history exists COVID-19 VACCINE ( season) 2024 06/30/2020, 06/02/2020 Adult Td,Tdap Booster 05/01/2026 05/01/2016 SCREENING FOR DIABETES 11/13/2026 11/14/2023, 2022 LIPID PANEL 04/18/2027 04/18/2022, 02/0 03/2022, 05/08/2016, Additional history exists HEPATITIS C SCREENING Completed 04/18/2022, 023 HIV ONE-TIME SCREENING (18-65 YEARS) Completed 04/18/2022 SMOKING STATUS SCREENING (Once After 26 Yrs) Completed 12/23/2023 HEPATITIS A VACCINES Aged Out No long er eligible based on patient's age to complete this topic HIB VACCINES Aged Out No longer eligi ble based on patient's age to complete this topic MENINGOCOCCAL VACCINES (ACWY) Aged Out No longer eligible based on patient's age to complete this topic MENINGOCOCCAL VACCINES (B) Aged Out N o longer eligible based on patient's age to complete this topic PNEUMOCOCCAL VACCINES (0-49 years) Aged Out No longer eligible based on patient's age to complete this topic Medical Devices Not on file Procedures Procedure Name Priority Date/Time Associated Diagnosis Comments BASIC METABOLIC PANEL Routine 11/14/2023 11:35 AM EDT Benign essential hypertension Pre-op evaluation LIPID PANEL Routine 04/18/2022 10:13 AM EST Obesity, morbid HEPATITIS C ANTIBODY, QUALITATIVE Routine 04/18/2022 10:13 AM EST Need for hepatitis C screening test from Last 3 Months or Most Recently Relevant to Health Maintenance Results * (ABNORMAL) Basic metabolic panel (11/14/2023 11:35 AM EDT) SODIUM 136 133 - 146 mmol/L [facility] CHLORIDE 96 96 - 108 mmol/L [facility] POTASSIUM 4.2 3.3 - 5.1 mmol/L [facility] CO2 26 21 - 35 mmol/L [facility] BUN 17 6 - 19 mg/dL [facility] CREATININE 0.90 0.5 - 1.5 mg/dL [facility] GLUCOSE 104(H) 70 - 99 mg/dL [facility] CALCIUM 9.1 8.4 - 10.3 mg/dL [facility] EGFR 111 >59 mL/min/1.7 3m2 [facility] Comment:Estimated glomerular filtration rate calculated using the CKD-EPI refit equation. ANION GAP 18 10 - 20 mmol/L [facility] Blood 11/14/2023 11:3 5 AM EDT 11/14/2023 11:38 AM EDT us Marco A Erickson MD LAB BLOOD ORDERABLES Final Resul t Performing Organization Address City/[facility] Co de Phone Number [address] [address] * Hepatitis C antibody, qualitative (04/18/2022 10:13 AM EST) HCV NON-REACTIV E NON-REACTI VE [facility] Blood 04/18/2022 10:1 3 AM EST 04/18/2022 10:17 AM EST us Marco A Erickson MD LAB BLOOD ORDERABLES Final Resul t Performing Organization Address [facility] Co de Phone Number [address] [address] * (ABNORMAL) Lipid panel (04/18/2022 10:13 AM EST) HDL 61 mg/dL [facility] Comment: Interpretation <40 mg/dL: Low HDL cholesterol (major risk factor for CHD) Greater than or equal to 60 mg/dL: High HDL cholesterol ( negative risk factor for CHD) HDL - cholesterol is affected by a number of factors, e.g. smoking, excerise, hormones, sex and age. CHOLESTEROL 201 0 - 240 mg/dL [facility] TRIGLYCERIDES 100 30 - 160 mg/dL [facility] LDL 120 50 - 129 mg/dL [facility] Comment: LDL levels in terms of risk for coronary heart disease: <100 mg/dL: Optimal 100-129 mg/dL: Near or above optimal 130-159 mg/dL: Borderline high 160-189 mg/dL: High >190 mg/dL: Very High CARDIAC RISK RATIO 3.3(L) 3.4 - 5.0 [facility] Blood 04/18/2022 10:1 3 AM EST 04/18/2022 10:17 AM EST us Marco A Erickson MD LAB BLOOD ORDERABLES Final Resul t Performing Organization Address City/[facility] Co de Phone Number [address] [address] from Last 3 Months or Most Recently Relevant to Health Maintenance [place] [address] [place] [address] [address] [place] [address] [address] [place] [address] PPO EPO [facility] PPO EPO [facility] PPO EPO [facility] PPO EPO [facility] PPO EPO [facility] PPO EPO [facility] PPO EPO Care Teams Track Inspecting Supervisor Relationship Specialty Start Date End Date Marco A Erickson MD [address] [place] [id number] [email or web address] PCP - General Internal Medicine 01/14/19 Additional Source Comments The information contained in this document represents components of the legal health record. It is not the complete legal health record.[facility]
[2024-12-08 01:51] VITALS: BP 165/104; PULSE 89; RESP 16; TEMP 36.6; O2SAT 98
== END 2024-12-08 01:51 | disposition home or self-care (01) ==
PROVIDERS: Emergency Provider Emergency Medicine
DX: S63.91XA Sprain of unspecified part of right wrist and hand, initial encounter (principal); S60.221A Contusion of right hand, initial encounter; M79.641 Pain in right hand; X58.XXXA Exposure to other specified factors, initial encounter; Y93.9 Activity, unspecified; Y92.9 Unspecified place or not applicable; Y99.8 Other external cause status
CPT/HCPCS: 73090; 73130; 96372; 99283; 99284; J1885

== ENCOUNTER → 2024-12-08 00:45 | Outpatient (BNV) | payer BC, SELFPAY | PROVIDERS: Emergency Provider Emergency Medicine; Visit Provider Student in an Organized Health Care Education/Training Program | DX: M79.641 Pain in right hand (principal); M79.631 Pain in right forearm | CPT/HCPCS: 73090; 73130 ==